=== PATIENT | female | born 1990 | race American Indian/Alaskan Native ===

== ENCOUNTER 2019-07-22 07:11 | Emergency (ER) | payer OTHER ==
--- NOTE | 2019-07-22 08:26 | Emergency Department Report ---
ED Palpitations HPI - General Chief Complaint: Arrhythmia/Palpitations Stated Complaint: HEART PALPITATIONS Time Seen by Provider: 07/22/19 07:40 Source: patient Mode of arrival: Ambulatory Limitations: No Limitations - History of Present Illness Initial Comments: This is a 28-year-old -[place] female who presents to the emergency room with palpitations for 3 days. Patient states she noticed palpitations occur with movement. She reports a history of GERD. Patient states she has been experiencing some anxiety since her mom in 2016. Patient states she had anxiety under control and not sure if this is related to. Patient states she read online that increase in fluid intake will improve palpitations. She has increase fluid intake but continues to have palpitations. She denies chest pain, nausea, vomiting, shortness of breath, fever, chills, cough, wheezing or dizziness. MD Complaint: palpitations Onset/Timin -: days(s) Context: occured during exertion Associated Symptoms: denies other symptoms - Related Data Allergies Allergy/AdvReac Type Severity Reaction Status Date / Time No Known Allergies Allergy Unverified 07/22/19 07:19 ED Review of Systems ROS: Stated complaint: HEART PALPITATIONS Other details as noted in HPI Constitutional: denies: chills, fever Respiratory: denies: cough, shortness of breath, wheezing Cardiovascular: palpitations. denies: chest pain, dyspnea on exertion, orthopnea, edema, syncope, paroxysmal nocturnal dyspnea Endocrine: no symptoms reported Gastrointestinal: denies: abdominal pain, nausea, diarrhea Skin: denies: rash, lesions Neurological: denies: headache, weakness, paresthesias Psychiatric: denies: anxiety, depression ED Past Medical Hx - Past Medical History Previous Medical History?: Yes Hx GERD: Yes - Surgical History Past Surgical History?: No - Social History Smoking Status: Never Smoker Substance Use Type: None ED Physical Exam - General Limitations: No Limitations General appearance: alert, in no apparent distress, obese - ENT ENT exam: Present: mucous membranes moist - Respiratory Respiratory exam: Present: normal lung sounds bilaterally. Absent: respiratory distress, wheezes, rales, rhonchi, stridor, chest wall tenderness - Cardiovascular Cardiovascular Exam: Present: regular rate, normal rhythm. Absent: bradycardia, tachycardia, irregular rhythm, systolic murmur, diastolic murmur, rubs, gallop - GI/Abdominal GI/Abdominal exam: Present: soft, normal bowel sounds. Absent: distended, tenderness, guarding, rebound, rigid - Neurological Exam Neurological exam: Present: alert, oriented X3, normal gait - Psychiatric Psychiatric exam: Present: normal affect, normal mood - Skin Skin exam: Present: warm, dry, intact, normal color. Absent: rash ED Course Vital Signs 07/22/19 07/22/19 07:16 07:34 Temperature 98.3 F Pulse Rate 77 Respiratory 16 18 Rate Blood Pressure 149/94 O2 Sat by Pulse 100 Oximetry ED Medical Decision Making - Lab Data Result diagrams: 07/22/19 09:22 07/22/19 09:22 Lab Results 07/22/19 07/22/19 07/22/19 Range/Units 09:22 09:22 09:22 WBC 4.3 L (4.5-11.0) K/mm3 RBC 4.61 (3.65-5.03) M/mm3 Hgb 13.9 (10.1-14.3) gm/dl Hct 40.8 (30.3-42.9) % MCV 89 (79-97) fl MCH 30 (28-32) pg MCHC 34 (30-34) % RDW 13.3 (13.2-15.2) % Plt Count 206 (140-440) K/mm3 Lymph % (Auto) 34.8 (13.4-35.0) % Weld % (Auto) 4.3 (0.0-7.3) % Eos % (Auto) 0.2 (0.0-4.3) % Baso % (Auto) 1.2 (0.0-1.8) % Lymph # 1.5 (1.2-5.4) K/mm3 Weld # 0.2 (0.0-0.8) K/mm3 Eos # 0.0 (0.0-0.4) K/mm3 Baso # 0.1 (0.0-0.1) K/mm3 Seg Neutrophils % 59.5 (40.0-70.0) % Seg Neutrophils # 2.5 (1.8-7.7) K/mm3 Sodium 143 (137-145) mmol/L Potassium 3.7 (3.6-5.0) mmol/L Chloride 105.2 (98-107) mmol/L Carbon Dioxide 26 (22-30) mmol/L Anion Gap 16 mmol/L BUN 9 (7-17) mg/dL Creatinine 0.6 L (0.7-1.2) mg/dL Estimated GFR > 60 ml/min BUN/Creatinine Ratio 15 % Glucose 110 H (65-100) mg/dL Calcium 9.2 (8.4-10.2) mg/dL TSH 0.927 (0.270-4.200) mlU/mL - Radiology Data Radiology results: report reviewed CHEST 1 VIEW 07/22/2019 9:09 AM INDICATION / CLINICAL INFORMATION: palpitations. COMPARISON: None available. FINDINGS: SUPPORT DEVICES: None. HEART / MEDIASTINUM: No significant abnormality. LUNGS / PLEURA: No significant pulmonary or pleural abnormality. No pneumothorax. ADDITIONAL FINDINGS: No significant additional findings. IMPRESSION: 1. No acute findings. - Medical Decision Making Patient was examined by me. Patient is nontoxic appearing and stable. Vitals are normal. Obtained labs, EKG, and a chest x-ray. There are signs of viral infection which possibly could cause palpitations. Patient denies shortness of breath, chest pain, cough, fever, chills, wheezing, or dizziness. EKG shows sinus rhythm and chest x-ray without acute cardiopulmonary findings. Past medical history of GERD. Instructed to take OTC pepcid or nexium for trial. Patient informed of results. Patient instructed to follow-up with the primary c are doctor or return to the emergency room with worsening symptoms. Referral to cardiology was provided. Patient discharged home in stable condition. Critical care attestation.: If time is entered above; I have spent that time in minutes in the direct care of this critically ill patient, excluding procedure time. ED Disposition Clinical Impression: Palpitations, Viral syndrome Disposition: DC-01 TO HOME OR SELFCARE Is pt being admited?: No Condition: Stable Instructions: Palpitations (ED) Additional Instructions: Follow-up with the primary care doctor or return to the emergency room with worsening symptoms. Referrals: [facility] [place] [Outside] - 3-5 Days [facility] [Outside] - 3-5 Days RODRIGO FERNANDEZ MD [Staff Physician] - 3-5 Days Forms: Work/School Release Form(ED) Time of Disposition: 10:36
[2019-07-22 09:32] LABS: Basophils # (Auto) 0.1 K/mm3 (0.0-0.1); Basophils % (Auto) 1.2 % (0.0-1.8); Eosinophils % (Auto) 0.2 % (0.0-4.3); Hematocrit 40.8 % (30.3-42.9); Hemoglobin 13.9 gm/dl (10.1-14.3); Lymphocytes # (Auto) 1.5 K/mm3 (1.2-5.4); Lymphocytes % (Auto) 34.8 % (13.4-35.0); Mean Corpuscular HGB Conc 34 % (30-34); Mean Corpuscular Volume 89 fl (79-97); Monocytes # (Auto) 0.2 K/mm3 (0.0-0.8); Monocytes % (Auto) 4.3 % (0.0-7.3); Platelet Count 206 K/mm3 (140-440); Red Blood Count 4.61 M/mm3 (3.65-5.03); Red Cell Distribution Width 13.3 % (13.2-15.2)
[2019-07-22 09:52] LABS: BUN/Creatinine Ratio 15; Blood Urea Nitrogen 9 mg/dL (7-17); Calcium 9.2 mg/dL (8.4-10.2); Hemolysis Index 24
--- NOTE | 2019-07-22 10:06 | XRay Report ---
CHEST 1 VIEW 07/22/2019 9:09 AM INDICATION / CLINICAL INFORMATION: palpitations. COMPARISON: None available. FINDINGS: SUPPORT DEVICES: None. HEART / MEDIASTINUM: No significant abnormality. LUNGS / PLEURA: No significant pulmonary or pleural abnormality. No pneumothorax. ADDITIONAL FINDINGS: No significant additional findings. IMPRESSION: 1. No acute findings. Signer Name: Scott Carrasquillo MD Signed: 07/22/2019 10:02 AM Workstation Name: [id number]
[2019-07-22 10:46] VITALS: BP 133/63
== END 2019-07-22 10:47 | disposition home or self-care (01) ==
LOC: ED 07:11
DX: B34.9 Viral infection, unspecified (principal); R00.2 Palpitations; K21.9 Gastro-esophageal reflux disease without esophagitis
CPT/HCPCS: 36415; 71046; 80048; 84443; 85025; 93005; 93010

== ENCOUNTER 2019-08-07 11:39 | Emergency (ER) | payer OTHER ==
--- NOTE | 2019-08-07 11:48 | Emergency Department Report ---
Blank Doc - Documentation Documentation: 29-year-old female that presents with URI symptoms. This initial assessment/diagnostic orders/clinical plan/treatment(s) is/are subject to change based on patient's health status, clinical progression and re- assessment by fellow clinical providers in the ED. Further treatment and workup at subsequent clinical providers discretion. Patient/guardians urged not to elope from the ED as their condition may be serious if not clinically assessed and managed. Initial orders include: 1- Patient sent to [facility] for further evaluation and treatment 2- CXR
[2019-08-07 11:52] VITALS: BP 147/81
--- NOTE | 2019-08-07 12:17 | XRay Report ---
CHEST 2 VIEWS INDICATION / CLINICAL INFORMATION: cough. COMPARISON: 07/22/2019. FINDINGS: SUPPORT DEVICES: None. HEART / MEDIASTINUM: No significant abnormality. LUNGS / PLEURA: No significant pulmonary or pleural abnormality. No pneumothorax. ADDITIONAL FINDINGS: No significant additional findings. IMPRESSION: 1. No acute findings. No significant change from the prior study. Signer Name: Joe Avendano MD Signed: 08/07/2019 12:12 PM Workstation Name: [id number]
--- NOTE | 2019-08-07 13:10 | Emergency Department Report ---
Minor Respiratory - HPI Chief Complaint: Upper Respiratory Infection Stated Complaint: SOB/COUGH/SNEEZING/BODY ACHES Time Seen by Provider: 08/07/19 11:48 Duration: 1 week Pain Location: Nose Severity: moderate Minor Respiratory: Yes Rhinorrhea, Yes Able to Tolerate Fluids, Yes Cough, Yes Sick Contacts, No Sore Throat, No Ear Pain, No Hemoptysis, No Chest Pain, No Shortness of Breath, No Fever Other History: This is a 29-year-old -Martiniquais female who presents to the emergency room with cough, body aches, rhinorrhea, and headache for one week. She has taken NyQuil for 1 day. Past medical history of GERD. Patient states she also takes omeprazole for concern of possible GERD flare with no improvement of symptoms. Denies sore throat, dysphagia, fever, chills, nausea, vomiting, or abdominal pain. ED Review of Systems ROS: Stated complaint: SOB/COUGH/SNEEZING/BODY ACHES Other details as noted in HPI Constitutional: denies: chills, fever ENT: congestion. denies: ear pain, throat pain Respiratory: cough. denies: shortness of breath, wheezing Cardiovascular: denies: chest pain, palpitations Gastrointestinal: denies: abdominal pain, nausea, diarrhea Musculoskeletal: myalgia. denies: back pain, joint swelling, arthralgia Skin: denies: rash, lesions Neurological: denies: headache, weakness, paresthesias Psychiatric: denies: anxiety, depression ED Past Medical Hx - Past Medical History Previous Medical History?: Yes Hx GERD: Yes - Surgical History Past Surgical History?: No - Social History Smoking Status: Never Smoker Substance Use Type: None - Medications Home Medications: Home Medications Medication Instructions Recorded Confirmed Last Taken Type Benzonatate [Tessalon Perles] 100 mg PO Q8HR PRN #30 capsule 08/07/19 Unknown Rx Fluticasone [Flonase] 1 spray NS QDAY #1 bottle 08/07/19 Unknown Rx guaiFENesin ER [Mucinex ER] 600 mg PO Q12H #14 tablet.er 08/07/19 Unknown Rx Minor Respiratory Exam - Exam General: Vital signs noted. No distress. Alert and acting appropriately. HEENT: Yes Pharyngeal Erythema (erythematous posterior pharynx, uvula midline), Yes Moist Mucous Membranes, Yes Rhinorrhea (turbinates congested with mucoid discharge), Yes Maxillary Tenderness, No Pharyngeal Exudates, No Conjuctival Injection, No Frontal Tenderness Ear: Neither TM Bulge, Neither TM Erythema, Neither EAC Pain, Neither EAC Discharge Neck: Yes Supple, No Adenopathy Lungs: Yes Good Air Exchange, No Wheezes, No Ronchi, No Stridor, No Cough, No Labored Respirations, No Retractions, No Use of Accessory Muscles, No Other Abnormal Lung Sounds Heart: Yes Regular, No Murmur Abdomen: Yes Normal Bowel Sounds, No Tenderness, No Peritoneal Signs Skin: No Rash, No Edema Neurologic: Alert and oriented, no deficits. Musculoskeletal: Unremarkable. ED Course Vital Signs 08/07/19 11:48 Temperature 98.3 F Pulse Rate 78 Respiratory 18 Rate Blood Pressure 147/81 O2 Sat by Pulse 99 Oximetry ED Medical Decision Making - Radiology Data Radiology results: report reviewed CHEST 2 VIEWS INDICATION / CLINICAL INFORMATION: cough. COMPARISON: 07/22/2019. FINDINGS: SUPPORT DEVICES: None. HEART / MEDIASTINUM: No significant abnormality. LUNGS / PLEURA: No significant pulmonary or pleural abnormality. No pneumothorax. ADDITIONAL FINDINGS: No significant additional findings. IMPRESSION: 1. No acute findings. No significant change from the prior study. - Medical Decision Making 29 y.o. female that presents with congestion,myalgia, rhinorrhea, and headache for 1 week. Patient examined by me and stable. No distress noted. Vitals normal. Chest xray has been obtained with no acute cardiopulmonary findings. There is moderate congestion and tenderness over maxillary sinuses. Findings are susceptible of acute maxillary sinusitis. Start Flonase, Tessalon Perles, and mucinex. Discussed ER plan with patient who agreed. Discharged home stable. Follow up with Primary Care Provider in 2-3 days. Critical care attestation.: If time is entered above; I have spent that time in minutes in the direct care of this critically ill patient, excluding procedure time. ED Disposition Clinical Impression: Cough in adult Headache Qualifiers: Headache type: tension-type Headache chronicity pattern: acute headache Intractability: not intractable Qualified Code(s): G44.209 - Tension-type headache, unspecified, not intractable Sinusitis, acute, maxillary Qualifiers: Recurrence: non-recurrent Qualified Code(s): J01.00 - Acute maxillary sinusitis, unspecified Disposition: TO HOME OR SELFCARE Is pt being admited?: No Condition: Stable Instructions: Sinusitis (ED), Acute Headache (ED) Additional Instructions: Use warm moist compresses over sinuses. Use ibuprofen or Tylenol for pain. Use nasal saline spray. Avoid taking antihistamines. Follow up with Primary Care Provider if fever, short of breath, chest pain, or symptoms do not improve as discussed. Prescriptions: Fluticasone [Flonase] 1 spray NS QDAY #1 bottle guaiFENesin ER [Mucinex ER] 600 mg PO Q12H #14 tablet.er Benzonatate [Tessalon Perles] 100 mg PO Q8HR PRN #30 capsule PRN Reason: Cough Referrals: [facility] [Outside] - 3-5 Days [facility] [Outside] - 3-5 Days [facility] [Outside] - 3-5 Days Forms: Work/School Release Form(ED) Time of Disposition: 13:11
== END 2019-08-07 13:15 | disposition home or self-care (01) ==
LOC: ED 11:39
DX: G44.209 Tension-type headache, unspecified, not intractable (principal); J01.00 Acute maxillary sinusitis, unspecified; K21.9 Gastro-esophageal reflux disease without esophagitis; Z79.899 Other long term (current) drug therapy
CPT/HCPCS: 71046; 99283

== ENCOUNTER 2019-08-31 19:26 | Emergency (ER) | payer OTHER ==
--- NOTE | 2019-08-31 19:53 | Event Note ---
ED Screening Note Date of service: 08/31/19 Time: 19:49 ED Screening Note: 29 yr f presents with heart palpatations x yesterday recent antibiotic use for uti This initial assessment/diagnostic orders/clinical plan/treatment(s) is/are subject to change based on patients health status, clinical progression and re- assessment by fellow clinical providers in the ED. Further treatment and workup at subsequent clinical providers discretion. Patient/guardian urged not to elope from the ED as their condition may be serious if not clinically assessed and managed. Initial orders include: labs,
--- NOTE | 2019-08-31 21:15 | Emergency Department Report ---
ED Palpitations HPI - General Chief Complaint: Arrhythmia/Palpitations Stated Complaint: HEART PALPITATION Time Seen by Provider: 08/31/19 21:05 Source: patient Mode of arrival: Ambulatory Limitations: No Limitations - History of Present Illness MD Complaint: rapid heart beat, "heart racing", "skipped beats", palpitations -: Last night Context: occured during rest Associated Symptoms: denies other symptoms - Related Data Previous Rx's Medication Instructions Recorded Last Taken Type Benzonatate [Tessalon Perles] 100 mg PO Q8HR PRN #30 capsule 08/07/19 Unknown Rx Fluticasone [Flonase] 1 spray NS QDAY #1 bottle 08/07/19 Unknown Rx guaiFENesin ER [Mucinex ER] 600 mg PO Q12H #14 tablet.er 08/07/19 Unknown Rx Allergies Allergy/AdvReac Type Severity Reaction Status Date / Time No Known Allergies Allergy Verified 08/31/19 19:32 ED Review of Systems ROS: Stated complaint: HEART PALPITATION Other details as noted in HPI Comment: All other systems reviewed and negative Constitutional: denies: chills, fever Respiratory: denies: orthopnea, shortness of breath, SOB with exertion, SOB at rest Cardiovascular: palpitations. denies: chest pain Gastrointestinal: denies: abdominal pain, nausea, vomiting, diarrhea, constipa tion, hematemesis, melena, hematochezia Musculoskeletal: denies: back pain ED Past Medical Hx - Past Medical History Hx GERD: Yes - Social History Smoking Status: Never Smoker Substance Use Type: None - Medications Home Medications: Home Medications Medication Instructions Recorded Confirmed Last Taken Type Benzonatate [Tessalon Perles] 100 mg PO Q8HR PRN #30 capsule 08/07/19 Unknown Rx Fluticasone [Flonase] 1 spray NS QDAY #1 bottle 08/07/19 Unknown Rx guaiFENesin ER [Mucinex ER] 600 mg PO Q12H #14 tablet.er 08/07/19 Unknown Rx ED Physical Exam - General Limitations: No Limitations General appearance: alert, in no apparent distress - Head Head exam: Present: atraumatic, normocephalic, normal inspection - Eye Eye exam: Present: normal appearance, PERRL - ENT ENT exam: Present: normal exam, normal orophraynx, mucous membranes moist - Neck Neck exam: Present: normal inspection, full ROM. Absent: tenderness, meningismus, lymphadenopathy, thyromegaly - Respiratory Respiratory exam: Present: normal lung sounds bilaterally - Cardiovascular Cardiovascular Exam: Present: regular rate, normal rhythm, normal heart sounds - GI/Abdominal GI/Abdominal exam: Present: soft, normal bowel sounds. Absent: distended, tenderness, guarding, rebound, rigid, organomegaly, mass, bruit, pulsatile mass, hernia - Extremities Exam Extremities exam: Present: normal inspection, full ROM, normal capillary refill. Absent: tenderness, pedal edema, calf tenderness - Back Exam Back exam: Present: normal inspection, full ROM. Absent: CVA tenderness (R), CVA tenderness (L), muscle spasm, paraspinal tenderness, vertebral tenderness - Neurological Exam Neurological exam: Present: alert, oriented X3, CN II-XII intact, normal gait, reflexes normal - Psychiatric Psychiatric exam: Present: normal mood - Skin Skin exam: Present: warm, intact, normal color ED Course Vital Signs 08/31/19 08/31/19 19:36 21:23 Temperature 98.5 F 98.3 F Pulse Rate 81 52 L Respiratory 14 19 Rate Blood Pressure 141/81 Blood Pressure 136/76 [right arm] O2 Sat by Pulse 100 100 Oximetry ED Medical Decision Making - Lab Data Result diagrams: 08/31/19 20:50 08/31/19 20:50 - EKG Data -: EKG Interpreted by Me EKG shows normal: sinus rhythm Rate: normal - EKG Data Interpretation: no acute changes - Medical Decision Making EKG is unremarkable. Labs reviewed and is negative including thyroid panel. Patient advised to follow-up with her primary care physician in the next 2-3 days and to return to the ER if symptoms have not improved. Critical care attestation.: If time is entered above; I have spent that time in minutes in the direct care of this critically ill patient, excluding procedure time. ED Disposition Clinical Impression: Palpitations Disposition: DC-01 TO HOME OR SELFCARE Is pt being admited?: No Condition: Stable Instructions: Palpitations (ED) Referrals: [facility] [Provider Group] - 3-5 Days PRIMARY CARE, [Primary Care Provider] - 3-5 Days
[2019-08-31 21:31] VITALS: BP 136/76
[2019-08-31 21:41] LABS: BUN/Creatinine Ratio 13; Blood Urea Nitrogen 8 mg/dL (7-17); Calcium 9.1 mg/dL (8.4-10.2); Hemolysis Index 41
[2019-08-31 21:58] LABS: Basophils % (Auto) 0.3 % (0.0-1.8); Hematocrit 39.2 % (30.3-42.9); Hemoglobin 13.2 gm/dl (10.1-14.3); Lymphocytes # (Auto) 1.1 K/mm3 (1.2-5.4); Mean Corpuscular HGB Conc 34 % (30-34); Mean Corpuscular Volume 89 fl (79-97); Monocytes # (Auto) 0.2 K/mm3 (0.0-0.8); Monocytes % (Auto) 2.9 % (0.0-7.3); Platelet Count 240 K/mm3 (140-440); Red Blood Count 4.41 M/mm3 (3.65-5.03); Red Cell Distribution Width 13.6 % (13.2-15.2)
[2019-08-31 22:15] LABS: Free T4 (Free Thyroxine) 1.11 ng/dL (0.76-1.46)
[2019-08-31 22:59] LABS: Amphetamine Screen,Urine PRESUMPTIVE NEGATIVE; Benzodiazepines Screen,Urine PRESUMPTIVE NEGATIVE; Cannabinoid Screen,Urine PRESUMPTIVE NEGATIVE; Cocaine Screen,Urine PRESUMPTIVE NEGATIVE; Methadone Screen,Urine PRESUMPTIVE NEGATIVE; Opiate Screen,Urine PRESUMPTIVE NEGATIVE
[2019-08-31 23:06] LABS: Bilirubin,Urine NEG (Negative); Blood,Urine MOD (Negative); Color,Urine Colorless (Yellow); Protein,Urine <15 mg/dL mg/dL (Negative); Urobilinogen,Urine < 2.0 mg/dL (<2.0)
[2019-08-31 23:09] LABS: WBC,Urine < 1.0 /HPF (0.0-6.0)
== END 2019-08-31 23:35 | disposition home or self-care (01) ==
LOC: ED 19:26
DX: R00.2 Palpitations (principal); K21.9 Gastro-esophageal reflux disease without esophagitis; Z79.899 Other long term (current) drug therapy
CPT/HCPCS: 36415; 80048; 80307; 81001; 83735; 84439; 84443; 84703; 85025; 93005; 93010

== ENCOUNTER 2019-09-05 16:49 | Emergency (ER) | payer OTHER ==
--- NOTE | 2019-09-05 19:07 | XRay Report ---
CHEST PA AND LATERAL VIEWS INDICATION: Chest Pain. COMPARISON: 08/07/2019 FINDINGS: Support devices: None Heart: Normal and unchanged Lungs/Pleura: No acute pulmonary or pleural findings. IMPRESSION: 1. No significant abnormality and no interval change. Signer Name: Edwardo Lepe MD Signed: 09/05/2019 7:03 PM Workstation Name: [id number]
[2019-09-05] MEDS ORDERED: ALUM-MAG HYDROXIDE-SIMETHICONE 200-200-20MG/5ML ORAL LIQD 30 ML PO ONE (21:17)
[2019-09-05] MEDS ORDERED: LIDOCAINE VISCOUS 2% 15 ML ORAL LIQD PO ONE (21:17)
[2019-09-05] MEDS ORDERED: DICYCLOMINE 20 MG TAB PO ONE (21:17)
--- NOTE | 2019-09-05 22:10 | Emergency Department Report ---
ED General Adult HPI - General Chief complaint: Chest Pain Stated complaint: CHEST TIGHTNESS/LT SIDE NUMBNESS Time Seen by Provider: 09/05/19 20:36 Source: patient Mode of arrival: Ambulatory Limitations: No Limitations - History of Present Illness Initial comments: Patient is a 29-year-old female presents to the emergency room with complaints of a panic attack that occurred today while she was picking up her prescriptions at the pharmacy. She states that she felt a tingling sensation in her left arm and felt some pressure/burning sensation in her left chest. She denies any shortness of breath, pleuritic chest pain, leg swelling, any other symptoms. She states that she has a past medical history of anxiety and has these episodes occasionally. She states that she used to be on medication and attended therapy but just moved here from [place] does not have a therapist or psychiatrist. She denies any SI or HI. she also has a hx of GERD. Severity scale (0 -10): 0 - Related Data Previous Rx's Medication Instructions Recorded Last Taken Type Benzonatate [Tessalon Perles] 100 mg PO Q8HR PRN #30 capsule 08/07/19 Unknown Rx Fluticasone [Flonase] 1 spray NS QDAY #1 bottle 08/07/19 Unknown Rx guaiFENesin ER [Mucinex ER] 600 mg PO Q12H #14 tablet.er 08/07/19 Unknown Rx Allergies Allergy/AdvReac Type Severity Reaction Status Date / Time No Known Allergies Allergy Verified 08/31/19 19:32 ED Review of Systems ROS: Stated complaint: CHEST TIGHTNESS/LT SIDE NUMBNESS Other details as noted in HPI Comment: All other systems reviewed and negative ED Past Medical Hx - Past Medical History Previous Medical History?: Yes Hx GERD: Yes - Surgical History Past Surgical History?: No - Social History Smoking Status: Never Smoker Substance Use Type: None - Medications Home Medications: Home Medications Medication Instructions Recorded Confirmed Last Taken Type Benzonatate [Tessalon Perles] 100 mg PO Q8HR PRN #30 capsule 08/07/19 Unknown Rx Fluticasone [Flonase] 1 spray NS QDAY #1 bottle 08/07/19 Unknown Rx guaiFENesin ER [Mucinex ER] 600 mg PO Q12H #14 tablet.er 08/07/19 Unknown Rx ED Physical Exam - General Limitations: No Limitations General appearance: alert, in no apparent distress - Head Head exam: Present: atraumatic, normocephalic - Eye Eye exam: Present: normal appearance - ENT ENT exam: Present: mucous membranes moist - Respiratory Respiratory exam: Present: normal lung sounds bilaterally. Absent: respiratory distress, wheezes, rales, rhonchi, stridor, chest wall tenderness, accessory muscle use, decreased breath sounds, prolonged expiratory - Cardiovascular Cardiovascular Exam: Present: regular rate, normal rhythm, normal heart sounds. Absent: systolic murmur, diastolic murmur, rubs, gallop - Neurological Exam Neurological exam: Present: alert, oriented X3 - Psychiatric Psychiatric exam: Present: normal affect, normal mood - Skin Skin exam: Present: warm, dry, intact ED Course Vital Signs 09/05/19 09/05/19 18:27 22:19 Temperature 98.2 F Pulse Rate 90 86 Respiratory 16 16 Rate Blood Pressure 163/101 142/90 [Right] O2 Sat by Pulse 98 100 Oximetry ED Medical Decision Making - Radiology Data Radiology results: report reviewed CHEST PA AND LATERAL VIEWS INDICATION: Chest Pain. COMPARISON: 08/07/2019 FINDINGS: Support devices: None Heart: Normal and unchanged Lungs/Pleura: No acute pulmonary or pleural findings. IMPRESSION: 1. No significant abnormality and no interval change. Signer Name: Edwardo Lepe MD Signed: 09/05/2019 7:03 PM Workstation Name: [id number] Transcribed By: TM Dictated By: Edwardo Lepe MD Electronically Authenticated By: Edwardo Lepe MD Signed Date/Time: 09/05/19 2803 - Medical Decision Making Patient is a 29-year-old female presents to the emergency room with complaints of a panic attack that occurred today while she was picking up her prescriptions at the pharmacy. She states that she felt a tingling sensation in her left arm and felt some pressure/burning sensation in her left chest. She denies any shortness of breath, pleuritic chest pain, leg swelling, any other symptoms. She states that she has a past medical history of anxiety and has these episodes occasionally. She states that she used to be on medication and attended therapy but just moved here from [place] does not have a therapist or psychiatrist. She denies any SI or HI. she also has a hx of GERD. Initial vitals with elevated blood pressure which improved upon repeat otherwise normal vitals. Chest x-ray with no acute process. Patient was evaluated in the emergency department last week and had stable lab work and normal EKG. patient given a GI cocktail for acid reflux which she said improved burning sensation. PERC criteria negative. pt has very low risk for cardiac event. Will have patient follow-up with a etcher aircraft and a psychiatrist due to her anxiety. advised pt Please follow up with a etcher aircraft and a psychiatrist in the next 2-3 days. Return to the [facility] room immediately for any new or worsening symptoms. - Differential Diagnosis anxiety, costochrondritis, GERD, PTX, PE, CHF Critical care attestation.: If time is entered above; I have spent that time in minutes in the direct care of this critically ill patient, excluding procedure time. ED Disposition Clinical Impression: Atypical chest pain, Anxiety GERD (gastroesophageal reflux disease) Qualifiers: Esophagitis presence: without esophagitis Qualified Code(s): K21.9 - Gastro- esophageal reflux disease without esophagitis Disposition: TO HOME OR SELFCARE Is pt being admited?: No Does the pt Need Aspirin: No Condition: Stable Instructions: Chest Pain (ED), Gastroesophageal Reflux in Children (ED), Anxiety (ED) Additional Instructions: Please follow up with a etcher aircraft and a psychiatrist in the next 2-3 days. Return to the emergency room immediately for any new or worsening symptoms. Referrals: [facility] [Outside] - 2-3 Days OLIVIA LONGORIA MD [Staff Physician] - 2-3 Days Time of Disposition: 22:11 Print Language: JAPANESE
[2019-09-05 22:21] VITALS: BP 142/90
== END 2019-09-05 22:19 | disposition home or self-care (01) ==
LOC: ED 16:49
DX: K21.9 Gastro-esophageal reflux disease without esophagitis (principal); R07.89 Other chest pain; F41.9 Anxiety disorder, unspecified; Z79.899 Other long term (current) drug therapy
CPT/HCPCS: 71046; 93005; 93010

== ENCOUNTER 2019-09-08 14:49 | Emergency (ER) | payer OTHER ==
--- NOTE | 2019-09-08 15:18 | Emergency Department Report ---
Blank Doc - Documentation Documentation: 29-year-old female that presents with dizziness and left arm feeling heavy. This initial assessment/diagnostic orders/clinical plan/treatment(s) is/are subject to change based on patient's health status, clinical progression and re- assessment by fellow clinical providers in the ED. Further treatment and workup at subsequent clinical providers discretion. Patient/guardians urged not to elope from the ED as their condition may be serious if not clinically assessed and managed. Initial orders include: 1- Patient sent to [facility] for further evaluation and treatment 2- labs 3- EKG
[2019-09-08 15:43] LABS: Basophils # (Auto) 0.1 K/mm3 (0.0-0.1); Basophils % (Auto) 1.4 % (0.0-1.8); Eosinophils % (Auto) 0.3 % (0.0-4.3); Hematocrit 39.8 % (30.3-42.9); Hemoglobin 13.5 gm/dl (10.1-14.3); Lymphocytes # (Auto) 2.1 K/mm3 (1.2-5.4); Lymphocytes % (Auto) 34.2 % (13.4-35.0); Mean Corpuscular HGB Conc 34 % (30-34); Mean Corpuscular Volume 89 fl (79-97); Monocytes # (Auto) 0.3 K/mm3 (0.0-0.8); Monocytes % (Auto) 5.1 % (0.0-7.3); Platelet Count 236 K/mm3 (140-440); Red Blood Count 4.48 M/mm3 (3.65-5.03); Red Cell Distribution Width 13.3 % (13.2-15.2)
[2019-09-08 16:04] LABS: Alanine Aminotransferase 9 units/L (7-56); Albumin 4.4 g/dL (3.9-5); BUN/Creatinine Ratio 9; Blood Urea Nitrogen 6 mg/dL (7-17); Calcium 9.5 mg/dL (8.4-10.2); Hemolysis Index 8
[2019-09-08] MEDS ORDERED: MECLIZINE 25 MG TAB PO ONE (20:08)
[2019-09-08] MEDS ORDERED: POTASSIUM CHLORIDE ER 20 MEQ TAB PO ONE (20:08)
[2019-09-08 20:28] LABS: Bilirubin,Urine NEG (Negative); Blood,Urine SM (Negative); Color,Urine Straw (Yellow); Protein,Urine <15 mg/dL mg/dL (Negative); Urobilinogen,Urine < 2.0 mg/dL (<2.0); WBC,Urine < 1.0 /HPF (0.0-6.0)
--- NOTE | 2019-09-08 20:48 | Emergency Department Report ---
ED General Adult HPI - General Chief complaint: Dizziness Stated complaint: DIZZY/MIDDLE FACE PRESSURE Time Seen by Provider: 09/08/19 15:17 Source: patient Mode of arrival: Ambulatory Limitations: No Limitations - History of Present Illness Initial comments: Patient is a 29-year-old female presents emergency room with complete symptom dizziness that began 3 days ago. She states it's worse with laying flat or when she first stands up. She states she also has a frontal headache described as a pressure. Patient states also for one month she has had her "whole body feel like the muscles are pulling." She denies any chest pain, nausea, vomiting, s hortness of breath, leg swelling, vision changes, lateral numbness or weakness. Patient states that she has an appointment with a hoisting machine operator tomorrow. That she went to her primary care physician office earlier this week. She states that her only medical history is vitamin D deficiency and hypercholesterolemia. States that she was only placed on cholesterol medicine approximately 3 days ago and states that she had the muscle pulling sensation for a month - Related Data Previous Rx's Medication Instructions Recorded Last Taken Type Benzonatate [Tessalon Perles] 100 mg PO Q8HR PRN #30 capsule 08/07/19 Unknown Rx Fluticasone [Flonase] 1 spray NS QDAY #1 bottle 08/07/19 Unknown Rx guaiFENesin ER [Mucinex ER] 600 mg PO Q12H #14 tablet.er 08/07/19 Unknown Rx Cyclobenzaprine [Flexeril] 10 mg PO QHS PRN #10 tablet 09/08/19 Unknown Rx Meclizine [Antivert] 25 mg PO TID PRN #10 tablet 09/08/19 Unknown Rx Allergies Allergy/AdvReac Type Severity Reaction Status Date / Time No Known Allergies Allergy Verified 08/31/19 19:32 ED Review of Systems ROS: Stated complaint: DIZZY/MIDDLE FACE PRESSURE Other details as noted in HPI Comment: All other systems reviewed and negative ED Past Medical Hx - Past Medical History Previous Medical History?: Yes Hx GERD: Yes - Surgical History Past Surgical History?: No - Social History Smoking Status: Never Smoker Substance Use Type: None - Medications Home Medications: Home Medications Medication Instructions Recorded Confirmed Last Taken Type Benzonatate [Tessalon Perles] 100 mg PO Q8HR PRN #30 capsule 08/07/19 Unknown Rx Fluticasone [Flonase] 1 spray NS QDAY #1 bottle 08/07/19 Unknown Rx guaiFENesin ER [Mucinex ER] 600 mg PO Q12H #14 tablet.er 08/07/19 Unknown Rx Cyclobenzaprine [Flexeril] 10 mg PO QHS PRN #10 tablet 09/08/19 Unknown Rx Meclizine [Antivert] 25 mg PO TID PRN #10 tablet 09/08/19 Unknown Rx ED Physical Exam - General Limitations: No Limitations General appearance: alert, in no apparent distress - Head Head exam: Present: atraumatic, normocephalic - Eye Eye exam: Present: normal appearance, PERRL, EOMI. Absent: scleral icterus, con junctival injection, nystagmus, periorbital swelling, periorbital tenderness - ENT ENT exam: Present: normal orophraynx, mucous membranes moist, TM's normal bila terally, normal external ear exam, other (normal turbinates, no purulence in the nares, no sinus TTP) - Respiratory Respiratory exam: Present: normal lung sounds bilaterally. Absent: respiratory distress, wheezes, rales, rhonchi, stridor, chest wall tenderness, accessory muscle use, decreased breath sounds, prolonged expiratory - Cardiovascular Cardiovascular Exam: Present: regular rate, normal rhythm, normal heart sounds. Absent: systolic murmur, diastolic murmur, rubs, gallop - Neurological Exam Neurological exam: Present: alert, oriented X3, CN II-XII intact, normal gait, other (normal finger to nose, normal heel to reilly, 5/5 strength in the BUE/BLE, sensation intact throughout, no focal neuro deficit). Absent: motor sensory deficit - Psychiatric Psychiatric exam: Present: normal affect, normal mood - Skin Skin exam: Present: warm, dry, intact ED Course Vital Signs 09/08/19 09/08/19 15:06 21:03 Temperature 98.5 F Pulse Rate 87 77 Respiratory 16 17 Rate Blood Pressure 152/73 143/99 [Right] O2 Sat by Pulse 100 99 Oximetry ED Medical Decision Making - Lab Data Result diagrams: 09/08/19 15:27 09/08/19 15:27 Lab Results 09/08/19 09/08/19 09/08/19 Range/Units 15:27 15:27 20:07 WBC 6.3 (4.5-11.0) K/mm3 RBC 4.48 (3.65-5.03) M/mm3 Hgb 13.5 (10.1-14.3) gm/dl Hct 39.8 (30.3-42.9) % MCV 89 (79-97) fl MCH 30 (28-32) pg MCHC 34 (30-34) % RDW 13.3 (13.2-15.2) % Plt Count 236 (140-440) K/mm3 Lymph % (Auto) 34.2 (13.4-35.0) % [place] % (Auto) 5.1 (0.0-7.3) % Eos % (Auto) 0.3 (0.0-4.3) % Baso % (Auto) 1.4 (0.0-1.8) % Lymph # 2.1 (1.2-5.4) K/mm3 [place] # 0.3 (0.0-0.8) K/mm3 Eos # 0.0 (0.0-0.4) K/mm3 Baso # 0.1 (0.0-0.1) K/mm3 Seg Neutrophils % 59.0 (40.0-70.0) % Seg Neutrophils # 3.7 (1.8-7.7) K/mm3 Sodium 140 (137-145) mmol/L Potassium 3.4 L (3.6-5.0) mmol/L Chloride 102.2 (98-107) mmol/L Carbon Dioxide 24 (22-30) mmol/L Anion Gap 17 mmol/L BUN 6 L (7-17) mg/dL Creatinine 0.7 (0.7-1.2) mg/dL Estimated GFR > 60 ml/min BUN/Creatinine Ratio 9 % Glucose 101 H (65-100) mg/dL Calcium 9.5 (8.4-10.2) mg/dL Total Bilirubin 0.90 (0.1-1.2) mg/dL AST 13 (5-40) units/L ALT 9 (7-56) units/L Alkaline Phosphatase 66 (35-129) units/L Total Protein 7.3 (6.3-8.2) g/dL Albumin 4.4 (3.9-5) g/dL Albumin/Globulin Ratio 1.5 % Urine Color Straw (Yellow) Urine Turbidity Clear (Clear) Urine pH 6.0 (5.0-7.0) Ur Specific [place] 1.003 (1.003-1.030) Urine Protein <15 mg/dl (Negative) mg/dL Urine Glucose (UA) Neg (Negative) mg/dL Urine Ketones Tr (Negative) mg/dL Urine Blood Sm (Negative) Urine Nitrite Neg (Negative) Urine Bilirubin Neg (Negative) Urine Urobilinogen < 2.0 (<2.0) mg/dL Ur Leukocyte Esterase Neg (Negative) Urine WBC (Auto) < 1.0 (0.0-6.0) /HPF Urine RBC (Auto) 3.0 (0.0-6.0) /HPF U Epithel Cells (Auto) 8.0 (0-13.0) /HPF - EKG Data EKG shows normal: axis, intervals, QRS complexes Rate: normal - EKG Data 09/08/19 20:53 sinus arrhythmia LAE non specific T wave changes V1,V2, V3 compared to previous EKGs only change is sinus arrhythmia otherwise unchanged - Medical Decision Making Patient is a 29-year-old female presents emergency room with complete symptom dizziness that began 3 days ago. She states it's worse with laying flat or when she first stands up. She states she also has a frontal headache described as a pressure. Patient states also for one month she has had her "whole body feel like the muscles are pulling." She denies any chest pain, nausea, vomiting, shortness of breath, leg swelling, vision changes, lateral numbness or weakness. Patient states that she has an appointment with a hoisting machine operator tomorrow. That she went to her primary care physician office earlier this week. She states that her only medical history is vitamin D deficiency and hypercholesterolemia. States that she was only placed on cholesterol medicine approximately 3 days ago and states that she had the muscle pulling sensation for a month. Vitals are stable. No abnormality on physical examination as recorded in chart. Mild hypokalemia otherwise normal. Patient given K-Dur. UA is within normal limits. EKG with sinus arrhythmia, left atrial enlargement, nonspecific T-wave changes, appears similar to previous except for the sinus arrhythmia. pt given meclizine while in the emergency department and had no further episodes of dizziness and was able to walk in the emergency department without sprinting dizziness. She given prescription for meclizine and given prescription for Flexeril for her muscle spasms. her kidney function is normal, no protein in her urine, very unlikely rhabdomyolysis. advised pt Please take medication as prescribed. Do not drive or operate machinery while taking muscle relaxer. Please follow-up with your primary care doctor and your hoisting machine operator. Increase your water intake over the next several days. Return to the emergency room for any new or worsening symptoms. Please discuss with your primary care doctor about the medications your taking. - Differential Diagnosis electrolyte disturbance, arrhythmia, vertigo, hypotension, UTI Critical care attestation.: If time is entered above; I have spent that time in minutes in the direct care of this critically ill patient, excluding procedure time. ED Disposition Clinical Impression: Dizziness, Hypokalemia Disposition: DC-01 TO HOME OR SELFCARE Is pt being admited?: No Does the pt Need Aspirin: No Condition: Stable Instructions: Hypokalemia (ED), Dizziness (ED) Additional Instructions: Please take medication as prescribed. Do not drive or operate machinery while taking muscle relaxer. Please follow-up with your primary care doctor and your hoisting machine operator. Increase your water intake over the next several days. Return to the emergency room for any new or worsening symptoms. Please discuss with your primary care doctor about the medications your taking. Prescriptions: Cyclobenzaprine [Flexeril] 10 mg PO QHS PRN #10 tablet PRN Reason: Muscle Spasm Meclizine [Antivert] 25 mg PO TID PRN #10 tablet PRN Reason: Vertigo Referrals: VALERI GRAVES MD [Primary Care Provider] - 2-3 Days your, hoisting machine operator [Other] - 2-3 Days Time of Disposition: 20:58 Print Language: [place]
[2019-09-08 21:04] VITALS: BP 143/99
== END 2019-09-08 21:03 | disposition home or self-care (01) ==
LOC: ED 14:49
DX: R42 Dizziness and giddiness (principal); R51 Headache; E87.6 Hypokalemia; K21.9 Gastro-esophageal reflux disease without esophagitis
CPT/HCPCS: 36415; 80053; 81001; 85025; 93005; 93010

== ENCOUNTER 2019-09-24 14:18 | Emergency (ER) | payer OTHER ==
[2019-09-24 14:59] VITALS: BP 125/92
--- NOTE | 2019-09-24 15:01 | Event Note ---
ED Screening Note Date of service: 09/24/19 Time: 14:58 ED Screening Note: Pt complains of substernal chest pain x 10 am states hx of GERD and pain felt similar to her GERD pain, however omeprazole is not helping follows with a GI specialist This initial assessment/diagnostic orders/clinical plan/treatment(s) is/are subject to change based on patients health status, clinical progression and re- assessment by fellow clinical providers in the ED. Further treatment and workup at subsequent clinical providers discretion. Patient/guardian urged not to elope from the ED as their condition may be serious if not clinically assessed and managed. Initial orders include: labs CXR
[2019-09-24 15:53] LABS: Basophils % (Auto) 0.8 % (0.0-1.8); Eosinophils % (Auto) 0.1 % (0.0-4.3); Hematocrit 42.2 % (30.3-42.9); Hemoglobin 14.1 gm/dl (10.1-14.3); Lymphocytes # (Auto) 1.6 K/mm3 (1.2-5.4); Lymphocytes % (Auto) 34.6 % (13.4-35.0); Mean Corpuscular HGB Conc 33 % (30-34); Mean Corpuscular Volume 90 fl (79-97); Monocytes # (Auto) 0.3 K/mm3 (0.0-0.8); Monocytes % (Auto) 5.8 % (0.0-7.3); Platelet Count 209 K/mm3 (140-440); Red Blood Count 4.71 M/mm3 (3.65-5.03); Red Cell Distribution Width 13.4 % (13.2-15.2)
--- NOTE | 2019-09-24 15:56 | XRay Report ---
CHEST 2 VIEWS INDICATION / CLINICAL INFORMATION: chest pain. COMPARISON: Chest radiograph 09/05/2019 FINDINGS: Normal heart size. Clear lungs. No acute abnormality or significant change from 09/05/2019. Signer Name: Macario Crane MD Signed: 09/24/2019 3:52 PM Workstation Name: [id number]
[2019-09-24 16:14] LABS: Alanine Aminotransferase 11 units/L (7-56); Albumin 4.4 g/dL (3.9-5); BUN/Creatinine Ratio 7; Blood Urea Nitrogen 5 mg/dL (7-17); Calcium 9.8 mg/dL (8.4-10.2); Hemolysis Index 16
[2019-09-24] MEDS ORDERED: DICYCLOMINE 20 MG TAB PO ONE (18:40)
[2019-09-24] MEDS ORDERED: LIDOCAINE VISCOUS 2% 15 ML ORAL LIQD PO ONE (18:40)
[2019-09-24] MEDS ORDERED: ALUM-MAG HYDROXIDE-SIMETHICONE 200-200-20MG/5ML ORAL LIQD 30 ML PO ONE (18:40)
--- NOTE | 2019-09-24 18:42 | Emergency Department Report ---
ED Chest Pain HPI - General Chief Complaint: Chest Pain Stated Complaint: CHEST PAIN Time Seen by Provider: 09/24/19 14:57 Source: patient Mode of arrival: Ambulatory Limitations: No Limitations - History of Present Illness Initial Comments: Patient is a 29-year-old female presents emergency room with complaints of chest pain that began this morning. She states that it feels like a burning and pressure sensation. She states that she took her omeprazole and an [id number] antacid without complete relief. She denies any vomiting, shortness of breath, leg swelling, diaphoresis. She denies any recent travel, recent surgery, hormone use. Patient has been evaluated in the emergency department on multiple occasions for her chest pain. Patient states that she recently saw a sheet metal duct installer helper and wore a Holter monitor and had an echo performed which were both normal. Patient states she has also seen a GI doctor and had an EGD performed and she is awaiting results. - Related Data Previous Rx's Medication Instructions Recorded Last Taken Type Benzonatate [Tessalon Perles] 100 mg PO Q8HR PRN #30 capsule 08/07/19 Unknown Rx Fluticasone [Flonase] 1 spray NS QDAY #1 bottle 08/07/19 Unknown Rx guaiFENesin ER [Mucinex ER] 600 mg PO Q12H #14 tablet.er 08/07/19 Unknown Rx Cyclobenzaprine [Flexeril] 10 mg PO QHS PRN #10 tablet 09/08/19 Unknown Rx Meclizine [Antivert] 25 mg PO TID PRN #10 tablet 09/08/19 Unknown Rx Pantoprazole [Protonix TAB] 40 mg PO QDAY #30 tablet 09/24/19 Unknown Rx Allergies Allergy/AdvReac Type Severity Reaction Status Date / Time No Known Allergies Allergy Verified 08/31/19 19:32 Heart Score - HEART Score History: Slightly suspicious EKG: Normal Age: < 45 Risk factors: 1-2 risk factors Troponin: < normal limit HEART Score: 1 ED Review of Systems ROS: Stated complaint: CHEST PAIN Other details as noted in HPI Comment: All other systems reviewed and negative ED Past Medical Hx - Past Medical History Previous Medical History?: Yes Hx GERD: Yes Additional medical history: High cholesterol - Surgical History Past Surgical History?: No - Social History Smoking Status: Never Smoker Substance Use Type: None - Medications Home Medications: Home Medications Medication Instructions Recorded Confirmed Last Taken Type Benzonatate [Tessalon Perles] 100 mg PO Q8HR PRN #30 capsule 08/07/19 Unknown Rx Fluticasone [Flonase] 1 spray NS QDAY #1 bottle 08/07/19 Unknown Rx guaiFENesin ER [Mucinex ER] 600 mg PO Q12H #14 tablet.er 08/07/19 Unknown Rx Cyclobenzaprine [Flexeril] 10 mg PO QHS PRN #10 tablet 09/08/19 Unknown Rx Meclizine [Antivert] 25 mg PO TID PRN #10 tablet 09/08/19 Unknown Rx Pantoprazole [Protonix TAB] 40 mg PO QDAY #30 tablet 09/24/19 Unknown Rx ED Physical Exam - General Limitations: No Limitations General appearance: alert, in no apparent distress - Head Head exam: Present: atraumatic, normocephalic - Eye Eye exam: Present: normal appearance - ENT ENT exam: Present: mucous membranes moist - Respiratory Respiratory exam: Present: normal lung sounds bilaterally. Absent: respiratory distress, wheezes, rales, rhonchi, stridor, chest wall tenderness, accessory muscle use, decreased breath sounds, prolonged expiratory - Cardiovascular Cardiovascular Exam: Present: regular rate, normal rhythm, normal heart sounds. Absent: systolic murmur, diastolic murmur, rubs, gallop - Extremities Exam Extremities exam: Absent: pedal edema - Neurological Exam Neurological exam: Present: alert, oriented X3 - Psychiatric Psychiatric exam: Present: normal affect, normal mood - Skin Skin exam: Present: warm, dry, intact ED Course Vital Signs 09/24/19 09/24/19 14:57 19:52 Temperature 98.3 F Pulse Rate 95 H 60 Respiratory 16 Rate Blood Pressure 125/92 O2 Sat by Pulse 100 100 Oximetry GRAHAM score - Graham Score Age > 65: (0) No Aspirin use within the Past 7 Days: (0) No 3 or more CAD Risk Factors: (0) No 2 or more Angina events in past 24 hrs: (0) No Known CAD with more than 50% Stenosis: (0) No Elevated Cardiac Markers: (0) No ST Deviation Greater than 0.5mm: (0) No GRAHAM Score: 0 ED Medical Decision Making - Lab Data Result diagrams: 09/24/19 15:44 09/24/19 15:44 - EKG Data EKG shows normal: sinus rhythm, axis, intervals, QRS complexes Rate: normal - EKG Data 09/24/19 19:27 non specific T wave inversion in V1, V2, V3 no STEMI - Radiology Data Radiology results: report reviewed CHEST 2 VIEWS INDICATION / CLINICAL INFORMATION: chest pain. COMPARISON: Chest radiograph 09/05/2019 FINDINGS: Normal heart size. Clear lungs. No acute abnormality or significant change from 09/05/2019. Signer Name: Macario Crane MD Signed: 09/24/2019 3:52 PM Workstation Name: [id number] Transcribed By: AMOS Dictated By: Macario Crane MD Electronically Authenticated By: Macario Crane MD Signed Date/Time: 09/24/191551 DD/ 50 TD/TT: - Medical Decision Making Patient is a 29-year-old female presents emergency room with complaints of chest pain that began this morning. She states that it feels like a burning and press ure sensation. She states that she took her omeprazole and an lkhb-rob-yroxwhj antacid without complete relief. She denies any vomiting, shortness of breath, leg swelling, diaphoresis. She denies any recent travel, recent surgery, hormone use. Patient has been evaluated in the emergency department on multiple occasions for her chest pain. Patient states that she recently saw a sheet metal duct installer helper and wore a Holter monitor and had an echo performed which were both normal. Patient states she has also seen a GI doctor and had an EGD performed and she is awaiting results. heart score is 1, graham score is 0. PERC criteria negative for PE. labs are normal. troponin is negative x2. CXR: Normal heart size. Clear lungs. No acute abnormality or significant change from 09/05/2019. pt given GI cocktail with some improvement in symptoms. it appears pt may have anxiety vs somatic symptom disorder will refer pt to mental health. pt given prescription for protonix. advised pt to please take medication as prescribed. Please stop taking omeprazole and begin taking pantoprazole. Increase your water intake. Please follow the diet for acid reflux. Follow up with her primary care doctor in the next 2-3 days. please follow up with mental health. Return to the emergency room for any new or worsening symptoms. Critical care attestation.: If time is entered above; I have spent that time in minutes in the direct care of this critically ill patient, excluding procedure time. ED Disposition Clinical Impression: Atypical chest pain GERD (gastroesophageal reflux disease) Qualifiers: Esophagitis presence: without esophagitis Qualified Code(s): K21.9 - Gastro- esophageal reflux disease without esophagitis Disposition: TO HOME OR SELFCARE Is pt being admited?: No Does the pt Need Aspirin: No Condition: Stable Instructions: Chest Pain (ED), Diet for Ulcers and Gastritis (ED), Gastroesophageal Reflux Disease (ED) Additional Instructions: please take medication as prescribed. Please stop taking omeprazole and begin taking pantoprazole. Increase your water intake. Please follow the diet for acid reflux. Follow up with her primary care doctor in the next 2-3 days. please follow up with mental health. Return to the emergency room for any new or worsening symptoms. Prescriptions: Pantoprazole [Protonix TAB] 40 mg PO QDAY #30 tablet Referrals: PRIMARY CARE, [Primary Care Provider] - [facility] Time of Disposition: 19:25 Print Language: AUSTRIAN
== END 2019-09-24 19:36 | disposition home or self-care (01) ==
LOC: ED 14:18
DX: K21.9 Gastro-esophageal reflux disease without esophagitis (principal); R07.89 Other chest pain; E78.00 Pure hypercholesterolemia, unspecified; Z79.899 Other long term (current) drug therapy
CPT/HCPCS: 36415; 71046; 80053; 84484; 85025; 93005; 93010

== ENCOUNTER 2020-01-14 02:36 | Emergency (ER) | payer OTHER ==
[2020-01-14] MEDS ORDERED: ONDANSETRON 4 MG/2 ML INJ IV ONE (03:27)
[2020-01-14] MEDS ORDERED: KETOROLAC 30 MG/1 ML INJ IV ONE (03:27)
[2020-01-14] MEDS ORDERED: HYDROmorphone 1 MG/1 ML INJ IV ONE (03:27)
[2020-01-14] MEDS ORDERED: ETOMIDATE 20 MG/10 ML INJ IV ONE (03:44)
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
--- NOTE | 2020-01-14 04:03 | XRay Report ---
RIGHT SHOULDER 3 VIEWS 0317 INDICATION: dislocated COMPARISON: None available. FINDINGS: An anterior and inferior dislocation of the humerus is seen relative to the glenoid. No def inite fracture is identified. Signer Name: Elias Machado MD Signed: 01/14/2020 3:58 AM Workstation Name: [id number]
--- NOTE | 2020-01-14 04:33 | XRay Report ---
RIGHT SHOULDER 1 VIEW 0359 INDICATION: Post reduction COMPARISON: 0317 FINDINGS: On this single view the previous dislocation appears to have been reduced though there is s till mild inferior subluxation. No fracture is identified. Signer Name: Elias Machado MD Signed: 01/14/2020 4:28 AM Workstation Name: [id number]
[2020-01-14 06:47] VITALS: BP 104/63
== END 2020-01-14 06:45 | disposition home or self-care (01) ==
LOC: ED 02:36
DX: S43.084A Other dislocation of right shoulder joint, initial encounter (principal); E78.00 Pure hypercholesterolemia, unspecified; K21.9 Gastro-esophageal reflux disease without esophagitis; Z79.1 Long term (current) use of non-steroidal anti-inflammatories (NSAID); Z79.899 Other long term (current) drug therapy; X58.XXXA Exposure to other specified factors, initial encounter; Y93.89 Activity, other specified; Y92.89 Other specified places as the place of occurrence of the external cause; Y99.8 Other external cause status
CPT/HCPCS: 23650; 73020; 73030; 96374; 96375; 99284; J1170; J1885; J2405

== ENCOUNTER 2020-05-23 23:44 | Emergency (ER) | payer OTHER ==
--- NOTE | 2020-05-24 00:28 | XRay Report ---
CHEST 1 VIEW INDICATION: Chest Pain. COMPARISON: 09/24/2019. FINDINGS: Support devices: None. Heart: Within normal limits. Lungs/Pleura: No acute air space or interstitial disease. Additional findings: None. IMPRESSION: No acute abnormality. Signer Name: Bird Jasso MD Signed: 05/24/2020 12:23 AM Workstation Name: [id number]
[2020-05-24] MEDS ORDERED: IBUPROFEN 600 MG TAB PO ONE (02:13)
[2020-05-24] MEDS ORDERED: BUTALB/ACETAMINOPHEN/CAFFEINE TAB PO ONE (02:13)
[2020-05-24] MEDS ORDERED: AMOXICILLIN/K CLAV 875/125MG TAB PO ONE (02:13)
[2020-05-24] MEDS ORDERED: ONDANSETRON 4 MG ODT TAB PO ONE (02:13)
--- NOTE | 2020-05-24 04:29 | Emergency Department Report ---
- General Chief Complaint: Chest Pain Stated Complaint: CHEST PAIN/HEADACHE/DIZZINESS [id number] Source: patient Mode of arrival: Ambulatory Limitations: No Limitations - History of Present Illness Initial Comments: Patient is a 29-year-old -Italian female with past medical history of GERD who presents to the ED with complaint of acute onset persistent frontal sinus pressure and headache, nasal and sinus congestion, sore throat, mild dry cough and pleuritic chest pain for the last 1 week, worse in the last 2 days. Patient states that she has been taking nqhs-ybr-offxatk medications with no relief. Patient also states that she lost her voice about 2 days ago due to persistent sore throat. Patient denies fever, chills, nausea, vomiting, shortness of breath, abdominal pain, dizziness, syncope, neck pain, change in vision, dysuria, urinary frequency and urgency or hearing loss. MD Complaint: cough, sore throat, rhinorrhea, nasal congestion, sinus pain, other (pleuritic chest pain) -: Sudden, week(s) (1) Severity: severe Severity scale (0 -10): 8 Quality: burning, sharp Consistency: constant Improves With: OTC cold medicine, cough suppressant Worsens With: nothing Associated Symptoms: denies other symptoms, headache, rhinorrhea, nasal congestion, sore throat, cough, chest pain. denies: fever, chills, myalgias, diaphoresis, stiff neck, shortness of breath, abdominal pain, nausea, vomiting, diarrhea, dysuria, rash, confusion, weight loss, epistaxis, hoarseness, ear pain Treatments Prior to Arrival: "cold medicine" - Related Data Previous Rx's Medication Instructions Recorded Last Taken Type Benzonatate [Tessalon Perles] 100 mg PO Q8HR PRN #30 capsule 08/07/19 Unknown Rx Fluticasone [Flonase] 1 spray NS QDAY #1 bottle 08/07/19 Unknown Rx guaiFENesin ER [Mucinex ER] 600 mg PO Q12H #14 tablet.er 08/07/19 Unknown Rx Cyclobenzaprine [Flexeril] 10 mg PO QHS PRN #10 tablet 09/08/19 Unknown Rx Meclizine [Antivert] 25 mg PO TID PRN #10 tablet 09/08/19 Unknown Rx Pantoprazole [Protonix TAB] 40 mg PO QDAY #30 tablet 09/24/19 Unknown Rx Ibuprofen [Motrin] 800 mg PO Q8HR PRN #30 tablet 01/14/20 Unknown Rx traMADoL [Ultram 50 MG tab] 50 mg PO Q4HR PRN #14 tablet 01/14/20 Unknown Rx Cyclobenzaprine [Flexeril] 10 mg PO TID PRN #10 tablet 05/01/20 Unknown Rx HYDROcodone/APAP 5-325 [[place] 1 each PO Q6HR PRN #14 tablet 05/01/20 Unknown Rx 5/325] Ibuprofen [Motrin 800 MG tab] 800 mg PO Q8HR PRN #20 tablet 05/01/20 Unknown Rx Azithromycin [Zithromax Z-DAVID] 250 mg PO DAILY #6 tablet 05/24/20 Unknown Rx Cetirizine HCl [Zyrtec 10mg tab] 10 mg PO DAILY #30 tablet 05/24/20 Unknown Rx Ibuprofen [Motrin] 800 mg PO Q8HR PRN #24 tablet 05/24/20 Unknown Rx methylPREDNISolone [Medrol 4MG 4 mg PO DAILY #21 tab.ds.pk 05/24/20 Unknown Rx DOSEPAK (21 tabs)] Allergies Allergy/AdvReac Type Severity Reaction Status Date / Time No Known Allergies Allergy Verified 08/31/19 19:32 ED Review of Systems ROS: Stated complaint: CHEST PAIN/HEADACHE/DIZZINESS X3WKS Other details as noted in HPI Constitutional: denies: chills, fever Eyes: denies: eye pain, eye discharge, vision change ENT: throat pain, congestion, other (Frontal sinus pressure and pain). denies: ear pain Respiratory: cough. denies: shortness of breath, wheezing Cardiovascular: chest pain (Pleuritic chest pain). denies: palpitations Endocrine: no symptoms reported Gastrointestinal: denies: abdominal pain, nausea, diarrhea Genitourinary: denies: urgency, dysuria, discharge Musculoskeletal: denies: back pain, joint swelling, arthralgia Skin: denies: rash, lesions Neurological: headache. denies: weakness, paresthesias Psychiatric: denies: anxiety, depression Hematological/Lymphatic: denies: easy bleeding, easy bruising ED Past Medical Hx - Past Medical History Previous Medical History?: Yes Hx GERD: Yes Additional medical history: High cholesterol - Social History Smoking Status: Never Smoker Substance Use Type: None - Medications Home Medications: Home Medications Medication Instructions Recorded Confirmed Last Taken Type Benzonatate [Tessalon Perles] 100 mg PO Q8HR PRN #30 capsule 08/07/19 Unknown Rx Fluticasone [Flonase] 1 spray NS QDAY #1 bottle 08/07/19 Unknown Rx guaiFENesin ER [Mucinex ER] 600 mg PO Q12H #14 tablet.er 08/07/19 Unknown Rx Cyclobenzaprine [Flexeril] 10 mg PO QHS PRN #10 tablet 09/08/19 Unknown Rx Meclizine [Antivert] 25 mg PO TID PRN #10 tablet 09/08/19 Unknown Rx Pantoprazole [Protonix TAB] 40 mg PO QDAY #30 tablet 09/24/19 Unknown Rx Ibuprofen [Motrin] 800 mg PO Q8HR PRN #30 tablet 01/14/20 Unknown Rx traMADoL [Ultram 50 MG tab] 50 mg PO Q4HR PRN #14 tablet 01/14/20 Unknown Rx Cyclobenzaprine [Flexeril] 10 mg PO TID PRN #10 tablet 05/01/20 Unknown Rx HYDROcodone/APAP 5-325 [[place] 1 each PO Q6HR PRN #14 tablet 05/01/20 Unknown Rx 5/325] Ibuprofen [Motrin 800 MG tab] 800 mg PO Q8HR PRN #20 tablet 05/01/20 Unknown Rx Azithromycin [Zithromax Z-DAVID] 250 mg PO DAILY #6 tablet 05/24/20 Unknown Rx Cetirizine HCl [Zyrtec 10mg tab] 10 mg PO DAILY #30 tablet 05/24/20 Unknown Rx Ibuprofen [Motrin] 800 mg PO Q8HR PRN #24 tablet 05/24/20 Unknown Rx methylPREDNISolone [Medrol 4MG 4 mg PO DAILY #21 tab.ds.pk 05/24/20 Unknown Rx DOSEPAK (21 tabs)] ED Physical Exam - General Limitations: No Limitations General appearance: alert, in no apparent distress - Head Head exam: Present: atraumatic, normocephalic, normal inspection - Eye Eye exam: Present: normal appearance, PERRL, EOMI Pupils: Present: normal accommodation - ENT ENT exam: Present: mucous membranes moist, TM's normal bilaterally, normal external ear exam, other (Palpable frontal sinus tenderness; grossly congested nasal passages; erythematous oropharynx) - Neck Neck exam: Present: normal inspection, full ROM. Absent: tenderness, lymphadenopathy - Respiratory Respiratory exam: Present: normal lung sounds bilaterally. Absent: respiratory distress, wheezes, rhonchi, chest wall tenderness, accessory muscle use, decreased breath sounds, prolonged expiratory - Cardiovascular Cardiovascular Exam: Present: regular rate, normal rhythm, normal heart sounds. Absent: systolic murmur, diastolic murmur, rubs, gallop - GI/Abdominal GI/Abdominal exam: Present: soft, normal bowel sounds. Absent: tenderness, guarding, hyperactive bowel sounds, hypoactive bowel sounds - Extremities Exam Extremities exam: Present: normal inspection, full ROM, normal capillary refill - Back Exam Back exam: Present: normal inspection, full ROM. Absent: CVA tenderness (L), muscle spasm, vertebral tenderness - Neurological Exam Neurological exam: Present: alert, oriented X3, CN II-XII intact, normal gait, reflexes normal - Psychiatric Psychiatric exam: Present: normal affect, normal mood - Skin Skin exam: Present: warm, dry, intact, normal color. Absent: rash ED Medical Decision Making - Radiology Data Radiology results: report reviewed, image reviewed Findings [facility] [address] [place] [address] XRay Report Signed Patient: CRICKET DURHAM MR #: [id number] : 1990 Acct:[id number] Age/Sex: 29 / F ADM Date: 05/23/20 Loc: ED Attending Dr: Ordering Physician: ALEX BLANCO MD Date of Service: 05/24/20 Procedure(s): XR chest 1V ap Accession Number(s): [id number] cc: ALEX BLANCO MD Fluoro Time In Minutes: CHEST 1 VIEW INDICATION: Chest Pain. COMPARISON: 09/24/2019. FINDINGS: Support devices: None. Heart: Within normal limits. Lungs/Pleura: No acute air space or interstitial disease. Additional findings: None. IMPRESSION: No acute abnormality. Signer Name: Bird Jasso MD Signed: 05/24/2020 12:23 AM Workstation Name: [id number] Transcribed By: ES Dictated By: Bird Jasso MD Electronically Authenticated By: Bird Jasso MD Signed Date/Time: 05/24/20 0023 DD/ TD/TT: - Medical Decision Making This is a 29-year-old -Italian female with past medical history of GERD who presents to the ED with complaint of acute onset persistent frontal sinus pressure and headache, nasal and sinus congestion, sore throat, mild dry cough and pleuritic chest pain for the last 1 week, worse in the last 2 days. Patient states that she has been taking rrwm-byi-yblbvih medications with no relief. Patient also states that she lost her voice about 2 days ago due to persistent sore throat. In the ED, patient is alert and oriented x3 and is not in distress. Chest x-ray shows no acute cardiopulmonary abnormalities or pneumonitis. Patient was treated in the ED with oral steroid and pain medications. On reevaluation, patient felt better and was discharged home on medications and advised follow-up with her primary care physician in 5 to 7 days for reevaluation or return to the ED immediately if symptoms get worse. - Differential Diagnosis sinusitis; URI; Pharyngitis; Pneumonia; Bronchitis Critical care attestation.: If time is entered above; I have spent that time in minutes in the direct care of this critically ill patient, excluding procedure time. ED Disposition Clinical Impression: Acute upper respiratory infection Acute frontal sinusitis Qualifiers: Recurrence: non-recurrent Qualified Code(s): J01.10 - Acute frontal sinusitis, unspecified Acute pharyngitis Qualifiers: Pharyngitis/tonsillitis etiology: unspecified etiology Qualified Code(s): J02.9 - Acute pharyngitis, unspecified Disposition: - TO HOME OR SELFCARE Is pt being admited?: No Does the pt Need Aspirin: No Condition: Stable Instructions: Pharyngitis (ED), Acute Bacterial Rhinosinusitis (ED), Upper Respiratory Infection (ED) Additional Instructions: Take medication with food, drink plenty of fluids and follow-up with your primary care physician in 5 to 7 days for reevaluation. Return to the ED immediately if symptoms get worse. Prescriptions: methylPREDNISolone [Medrol 4MG DOSEPAK (21 tabs)] 4 mg PO DAILY #21 tab.ds.pk Ibuprofen [Motrin] 800 mg PO Q8HR PRN #24 tablet PRN Reason: Pain , Severe (7-10) Azithromycin [Zithromax Z-DAVID] 250 mg PO DAILY #6 tablet Cetirizine HCl [Zyrtec 10mg tab] 10 mg PO DAILY #30 tablet Referrals: [facility] [Provider Group] - 3-5 Days Forms: Work/School Release Form(ED) Time of Disposition: 04:27 Print Language: GEORGIAN
[2020-05-24 04:32] VITALS: BP 142/86
== END 2020-05-24 05:00 | disposition home or self-care (01) ==
LOC: ED 23:44
DX: J06.9 Acute upper respiratory infection, unspecified (principal); J01.10 Acute frontal sinusitis, unspecified; J02.9 Acute pharyngitis, unspecified
CPT/HCPCS: 71045; 93005; 99283; Q0162

== ENCOUNTER 2020-06-25 07:10 | Outpatient (CLI) | payer OTHER ==
--- NOTE | 2020-06-25 09:15 | Magnetic Resonance Report ---
MRI right shoulder without contrast INDICATION: Anterior dislocation 3 times, generalized shoulder pain. COMPARISON: Right shoulder radiograph from 05/01/2020 FINDINGS: There is a well-defined Hill-Sachs fracture along the superolateral humeral head which is most likely subacute/chronic given relative lack of surrounding bone marrow edema. No acute osseous a bnormality or significant DJD identified. Rotator cuff tendons are intact with no discrete tear identified. Likewise the biceps tendon is intac t. There is irregularity of the anterior inferior glenoid without acute-appearing tear (i.e. lack of flu id bright signal), suggesting subacute/chronic Bankart lesion associated with a Hill-Sachs fracture. IMPRESSION: Findings of anterior inferior humeral head dislocation with associated labral injury. Gi taqueria relative lack of bone marrow edema and fluid bright signal in the labrum, these findings are like ly subacute/chronic. Signer Name: Duglas Ellsworth MD Signed: 06/25/2020 9:11 AM Workstation Name: [id number]
== END 2020-06-25 07:11 | disposition home or self-care (01) ==
LOC: MRI 07:10
PROVIDERS: ATTEND Orthopaedic Surgery
DX: S43.014A Anterior dislocation of right humerus, initial encounter (principal); X58.XXXA Exposure to other specified factors, initial encounter; Y93.89 Activity, other specified; Y92.89 Other specified places as the place of occurrence of the external cause; Y99.8 Other external cause status

== ENCOUNTER 2020-07-04 03:40 | Emergency (ER) | payer OTHER ==
[2020-07-04 04:24] VITALS: BP 134/93
== END 2020-07-04 04:30 | disposition left against medical advice (07) ==
LOC: ED 03:40
DX: R07.89 Other chest pain (principal); R42 Dizziness and giddiness; R00.2 Palpitations; Z53.21 Procedure and treatment not carried out due to patient leaving prior to being seen by health care provider
CPT/HCPCS: 93005

== ENCOUNTER 2021-06-20 07:10 | Emergency (ER) | payer OTHER ==
[2021-06-20] MEDS ORDERED: fentaNYL 100 MCG/2 ML INJ IV ONE (07:30)
--- NOTE | 2021-06-20 07:41 | Emergency Department Report ---
Upper Extremity - HPI Stated Complaint: dislocated rt shoulder Time Seen by Provider: 06/20/21 07:27 Other History: Patient presents secondary to right shoulder pain. She was trying to put her son in a car seat to take him to daycare so she did go to work. She felt her right shoulder pop out of joint. She has dislocated her right shoulder before and states that it is "easy to do." The last time she did this, she had to be sedated for reduction. She is complaining of pain in the right shoulder. The pain does not radiate or migrate. It is worse with any kind of movement. She describes the pain is severe. She denies any numbness or tingling in the digits on the right hand. She has not taken anything for pain prior to arrival. She is right-hand dominant. The pain is constant. ED Review of Systems ROS: Stated complaint: dislocated rt shoulder Other details as noted in HPI Comment: All other systems reviewed and negative Constitutional: denies: fever Eyes: denies: vision change ENT: denies: throat pain Respiratory: denies: cough Cardiovascular: denies: chest pain Endocrine: denies: unexplained weight loss Gastrointestinal: denies: abdominal pain Genitourinary: denies: dysuria Musculoskeletal: denies: back pain Skin: denies: rash Neurological: denies: headache, numbness Hematological/Lymphatic: denies: easy bruising ED Past Medical Hx - Past Medical History Previous Medical History?: Yes Hx GERD: Yes Additional medical history: High cholesterol - Surgical History Past Surgical History?: No - Family History Family history: no significant - Social History Smoking Status: Never Smoker Substance Use Type: None - Medications Home Medications: Home Medications Medication Instructions Recorded Confirmed Last Taken Type Fluticasone [Flonase] 1 spray NS QDAY #1 bottle 08/07/19 Unknown Rx Cyclobenzaprine [Flexeril] 10 mg PO QHS PRN #10 tablet 09/08/19 Unknown Rx Meclizine [Antivert] 25 mg PO TID PRN #10 tablet 09/08/19 Unknown Rx Pantoprazole [Protonix TAB] 40 mg PO QDAY #30 tablet 09/24/19 Unknown Rx traMADoL [Ultram 50 MG tab] 50 mg PO Q4HR PRN #14 tablet 01/14/20 Unknown Rx Cyclobenzaprine [Flexeril] 10 mg PO TID PRN #10 tablet 05/01/20 Unknown Rx HYDROcodone/APAP 5-325 [[place] 1 each PO Q6HR PRN #14 tablet 05/01/20 Unknown Rx 5/325] Cetirizine HCl [Zyrtec 10mg tab] 10 mg PO DAILY #30 tablet 05/24/20 Unknown Rx methylPREDNISolone [Medrol 4MG 4 mg PO DAILY #21 tab.ds.pk 05/24/20 Unknown Rx DOSEPAK (21 tabs)] Ibuprofen [Motrin 800 MG tab] 800 mg PO Q8HR PRN #30 tablet 06/20/21 Unknown Rx Upper Extremity Exam - Exam General: Vital signs noted. No distress. Alert and acting appropriately. Head and Torso: No HEENT Abnormality (Normocephalic, atraumatic. PERRL. EOMI. Oropharynx clear.), No Neck Tenderness (Trachea midline), No Chest/Lungs Abnormality (Heart is regular rate and rhythm. Lungs are clear bilaterally.), No Abdominal Tenderness (Soft and nontender.), No Back Tenderness (No CVA tenderness.) Shoulder Exam: Yes Shoulder Tenderness (Diffuse tenderness with palpation of the right shoulder. There is a suggestion of a step-off consistent with fracture.), No Normal Range of Motion in Shoulder (Limited range of motion due to pain.) Arm Exam: No Arm Deformity Elbow: No Elbow Tenderness, No Normal Range of Motion in Elbow, No Elbow Deformity Forearm: No Forearm Tenderness, No Forearm Deformity, No Pain with Pronation, No Pain with Supination Wrist: No Wrist Tenderness, No Normal ROM in Wrist Hand: No Hand Tenderness, No Hand Deformity CMS Exam: Yes Normal Distal Pulses (2+ radial pulses bilaterally), Yes Normal Capillary Refill (Normal capillary refill), Yes Normal Distal Sensation ED Course Vital Signs 06/20/21 07:27 Temperature 98.4 F Pulse Rate 64 Respiratory 16 Rate Blood Pressure 145/83 [Left] O2 Sat by Pulse 95 Oximetry - Reevaluation(s) Reevaluation #1: 06/20/21 07:30 IV medications were ordered. X-rays were ordered. Reevaluation #2: 06/20/21 08:04 X-rays were reviewed. Propofol was ordered. Reevaluation #3: 06/20/21 08:44 Shoulder was reduced. X-rays are pending. - Moderate Sedation Indications: fracture/dislocation redu Presedation Evaluation: Awake alert and in no distress. Patient meets criteria for sedation ASA Class: I Mallampati Airway Score: 2 Time of Last PO Intake: 06:00 Preparation: storage architect applied, pulse oximeter, capnometry used, supplemental O2 applied, suction/airway equipment at bedside, IV secured IV Propofol Dose (mgs): 80 (This was divided into 50 mg and 30 mg dosing) Complications: none Patient Tolerated Procedure: well, no complications Additional Comments: Intraservice sedation time was 17 minutes - Orthopedic Joint Reduction Joint #1 Consent Obtained: verbal consent Time Out Performed: Yes Side: right Joint Reduction Location: shoulder Analgesia: moderate sedation Shoulder Technique Used (if applicable): traction/counter-traction Post-Reduction Neuro Exam: intact Post-Reduction Vascular Exam: intact Post Reduction X-Ray Obtained: Yes Post Reduction X-Ray Results: reduced Splint Applied: Yes (Shoulder immobilizer and sling) Patient Tolerated Procedure: well Additional Comments: Intraservice sedation time was 17 minutes. ED Medical Decision Making - Medical Decision Making Patient present with a shoulder dislocation. There was a Hill-Sachs deformity noted. The shoulder was reduced. Patient was subsequently discharged. There was no evidence of neurologic compromise or vascular injury. Patient had no o ther joint injury or instability. I believe the Hill-Sachs fracture was old. Critical Care Time: No Critical care attestation.: If time is entered above; I have spent that time in minutes in the direct care of this critically ill patient, excluding procedure time. ED Disposition Clinical Impression: Recurrent dislocation, right shoulder Disposition: 01 HOME / SELF CARE / HOMELESS Is pt being admited?: No Condition: Stable Instructions: Shoulder Dislocation, Recurrent Shoulder Laxity and Instability Additional Instructions: Wear the shoulder immobilizer. Ice and elevate. Return for problems. Follow- up with your orthopedic surgeon for recheck and further management. Prescriptions: Ibuprofen [Motrin 800 MG tab] 800 mg PO Q8HR PRN #30 tablet PRN Reason: Pain , Severe (7-10) Referrals: PRIMARY CARE, [Referring] - 3-5 Days ARTURO DELEON MD [Staff Physician] - 3-5 Days REBECCA BORDEN MD [Staff Physician] - 3-5 Days Forms: Work/School Release Form(ED)
[2021-06-20] MEDS ORDERED: propofoL 200 MG/20 ML VIAL IV ONE (08:03)
--- NOTE | 2021-06-20 08:18 | XRay Report ---
XR shoulder 2+V RT INDICATION: dislocation. COMPARISON: None available. FINDINGS: There is an anterior glenohumeral joint dislocation in the right shoulder. Signer Name: Joe Avendano MD Signed: 06/20/2021 8:14 AM Workstation Name: [id number]
--- NOTE | 2021-06-20 09:21 | XRay Report ---
XR shoulder 2+V RT INDICATION / CLINICAL INFORMATION: Post reduction COMPARISON: Radiograph from earlier today. FINDINGS/IMPRESSION: The humeral head has been relocated with respect to the glenoid. Remote Hill-Sachs deformity again se en. No acute fracture is identified. Signer Name: Zander Patel MD Signed: 06/20/2021 9:17 AM Workstation Name: [id number]
[2021-06-20 09:51] VITALS: BP 156/82
== END 2021-06-20 09:58 | disposition home or self-care (01) ==
LOC: ED 07:10
DX: M24.411 Recurrent dislocation, right shoulder (principal); K21.9 Gastro-esophageal reflux disease without esophagitis; E78.00 Pure hypercholesterolemia, unspecified
CPT/HCPCS: 23650; 73030; 96374; 99283; J2704; J3010

== ENCOUNTER 2021-08-06 13:28 | Emergency (ER) | payer OTHER ==
[2021-08-06 13:41] VITALS: BP 137/90
== END 2021-08-06 14:45 | disposition left against medical advice (07) ==
LOC: ED 13:28
DX: R42 Dizziness and giddiness (principal); R11.0 Nausea; M79.602 Pain in left arm; Z53.21 Procedure and treatment not carried out due to patient leaving prior to being seen by health care provider

== ENCOUNTER 2021-12-17 08:04 | Emergency (ER) | payer OTHER ==
[2021-12-17 09:50] LABS: HCG Qualitative,Urine Negative (Negative)
[2021-12-17 09:52] LABS: Bilirubin,Urine NEG (Negative); Blood,Urine NEG (Negative); Color,Urine Yellow (Yellow); Protein,Urine <15 mg/dL mg/dL (Negative); Urobilinogen,Urine < 2.0 mg/dL (<2.0)
[2021-12-17 09:54] LABS: Hematocrit 39.5 % (30.3-42.9); Hemoglobin 13.2 gm/dl (10.1-14.3); Mean Corpuscular HGB Conc 33 % (30-34); Mean Corpuscular Volume 90 fl (79-97); Platelet Count 222 K/mm3 (140-440); Red Cell Distribution Width 12.9 % (13.2-15.2)
--- NOTE | 2021-12-17 09:56 | Emergency Department Report ---
ED General Adult HPI - General Chief complaint: Medical Clearance Stated complaint: Anxiety PUI?: No Time Seen by Provider: 12/17/21 08:34 Source: patient Mode of arrival: Ambulatory Limitations: No Limitations - History of Present Illness Initial comments: Patient is a 31-year-old female that comes to the emergency room complaining of numbness and tingling. She has a history of anxiety and reports being under a lot of stress with her kids at home and with her significant other. She denies any chest pain or shortness of breath. She does not want to take medicines for anxiety because she can get addicted to them. 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 She is well-appe aring and ambulatory, nontoxic [id number] on arrival to ER. -: Gradual, days(s) Improves with: none Worsens with: other Associated Symptoms: denies other symptoms - Related Data Allergies Allergy/AdvReac Type Severity Reaction Status Date / Time No Known Allergies Allergy Verified 08/06/21 13:41 ED Review of Systems ROS: Stated complaint: LT SIDE NUMBNESS Other details as noted in HPI Comment: All other systems reviewed and negative ED Past Medical Hx - Past Medical History Previous Medical History?: Yes Hx GERD: Yes Hx Psychiatric Treatment: Yes (anxiety) Additional medical history: High cholesterol. inc HR "when at doctor" - Surgical History Past Surgical History?: No - Family History Family history: no significant - Social History Smoking Status: Never Smoker Substance Use Type: None ED Physical Exam - General Limitations: No Limitations General appearance: alert, in no apparent distress - Head Head exam: Present: atraumatic, normocephalic - Eye Eye exam: Present: normal appearance - ENT ENT exam: Present: mucous membranes moist - Neck Neck exam: Present: normal inspection - Respiratory Respiratory exam: Present: normal lung sounds bilaterally. Absent: respiratory distress - Cardiovascular Cardiovascular Exam: Present: regular rate, normal rhythm. Absent: systolic murmur, diastolic murmur, rubs, gallop - GI/Abdominal GI/Abdominal exam: Present: soft, normal bowel sounds - Extremities Exam Extremities exam: Present: normal inspection - Back Exam Back exam: Present: normal inspection - Neurological Exam Neurological exam: Present: alert, oriented X3 - Psychiatric Psychiatric exam: Present: normal affect, normal mood - Skin Skin exam: Present: warm, dry, intact, normal color. Absent: rash ED Course Vital Signs 12/17/21 12/17/21 08:09 10:26 Temperature 98.0 F Pulse Rate 112 H 66 Respiratory 16 16 Rate Blood Pressure 144/85 Blood Pressure 138/82 [Right] O2 Sat by Pulse 99 99 Oximetry ED Medical Decision Making - Lab Data Result diagrams: 12/17/21 09:31 12/17/21 09:31 - Medical Decision Making Lab Results 12/17/21 12/17/21 12/17/21 Range/Units 09:31 09:31 Unknown WBC 5.0 (4.5-11.0) K/mm3 RBC 4.40 (3.65-5.03) M/mm3 Hgb 13.2 (10.1-14.3) gm/dl Hct 39.5 (30.3-42.9) % MCV 90 (79-97) fl MCH 30 (28-32) pg MCHC 33 (30-34) % RDW 12.9 L (13.2-15.2) % Plt Count 222 (140-440) K/mm3 Sodium 141 (137-145) mmol/L Potassium 4.1 (3.6-5.0) mmol/L Chloride 103.1 (98-107) mmol/L Carbon Dioxide 27 (22-30) mmol/L Anion Gap 15 mmol/L BUN 9 (7-17) mg/dL Creatinine 0.6 (0.6-1.2) mg/dL Estimated GFR > 60 ml/min BUN/Creatinine Ratio 15 % Glucose 109 H (65-100) mg/dL Calcium 9.9 (8.4-10.2) mg/dL Urine Color Yellow (Yellow) Urine Turbidity Clear (Clear) Urine pH 6.0 (5.0-7.0) Ur Specific Hood 1.005 (1.003-1.030) Urine Protein <15 mg/dl (Negative) mg/dL Urine Glucose (UA) Neg (Negative) mg/dL Urine Ketones Neg (Negative) mg/dL Urine Blood Neg (Negative) Urine Nitrite Neg (Negative) Ur Reducing Substances Not Reportable Urine Bilirubin Neg (Negative) Urine Ictotest Not Reportable Urine Urobilinogen < 2.0 (<2.0) mg/dL Ur Leukocyte Esterase Neg (Negative) Urine WBC (Auto) 1.0 (0.0-6.0) /HPF Urine RBC (Auto) 4.0 (0.0-6.0) /HPF U Epithel Cells (Auto) 2.0 (0-13.0) /HPF Urine HCG, Qual Negative (Negative) Vital Signs 12/17/21 12/17/21 08:09 10:26 Temperature 98.0 F Pulse Rate 112 H 66 Respiratory 16 16 Rate Blood Pressure 144/85 Blood Pressure 138/82 [Right] O2 Sat by Pulse 99 99 Oximetry Labs noted. UA noted. U negative. Patient has spent most of her time in the ER playing on her cell phone. She is in no acute distress. Patient was reassured of her lab findings. Have encouraged her to follow-up with primary care and get established with someone so that they can manage her anxiety on ongoing basis. She verbalizes understanding. Patient being discharged home with discharge plan of care including diet, meds, activity and follow-up. We have discussed ways to control her anxiety and minimize her stress. - Differential Diagnosis anxiety Critical care attestation.: If time is entered above; I have spent that time in minutes in the direct care of this critically ill patient, excluding procedure time. ED Disposition Clinical Impression: Anxiety Disposition: 01 HOME / SELF CARE / HOMELESS Is pt being admited?: No Does the pt Need Aspirin: No Condition: Stable Instructions: Managing Anxiety, Adult Additional Instructions: stay well hydrated daily exercise reduce stress follow up with pcp Referrals: [facility] [Other] - 3-5 Days Forms: Work/School Release Form(ED) Time of Disposition: 10:09
[2021-12-17 10:08] LABS: Blood Urea Nitrogen 9 mg/dL (7-17); Calcium 9.9 mg/dL (8.4-10.2); Hemolysis Index 13
[2021-12-17 10:12] LABS: BUN/Creatinine Ratio 15
[2021-12-17 10:27] VITALS: BP 138/82
== END 2021-12-17 10:27 | disposition home or self-care (01) ==
LOC: ED 08:04
DX: F41.9 Anxiety disorder, unspecified (principal); K21.9 Gastro-esophageal reflux disease without esophagitis
CPT/HCPCS: 36415; 80048; 81001; 81025; 85027; 99283

== ENCOUNTER → 2022-04-02 | Emergency (ER) | payer OTHER ==
[2022-04-02 16:21] VITALS: BP 144/90
== END | disposition left against medical advice (07) ==
LOC: ED 14:22
DX: R42 Dizziness and giddiness (principal); Z53.21 Procedure and treatment not carried out due to patient leaving prior to being seen by health care provider

== ENCOUNTER 2022-05-25 16:23 | Emergency (ER) | payer OTHER ==
--- NOTE | 2022-05-25 22:01 | Event Note ---
Date: 05/25/22 The patient was evaluated in the emergency department for symptoms described in the history of present illness. He/she was evaluated in the context of the global COVID-19 pandemic, which necessitated consideration that the patient might be at risk for infection with the virus that causes COVID-19. Institutional protocols and algorithms that pertain to the evaluation of patients at risk for COVID-19 are in a state of rapid change based on information released by regulatory bodies including the CDC and federal and state organizations. These policies and algorithms were followed during the patient's care in the emergency department. Please note that these policies, procedures and recommendations changed on a rapid basis. Medical screening examination note: 31-year-old female who states that she is not , who has received 1 Pfizer COVID-19 vaccination, presenting to the department today with a complaint of nonspecific chest pressure, bilateral facial paresthesias, bilateral hand paresthesias, and bilateral foot and ankle paresthesias. She is moving 4 extremities. There is no facial droop. The tongue is midline. EOMI. 5 out of 5 strength in 4 extremities. Patient manipulating cell phone without difficulty. She is clinically sober with a GCS of 15. She states that she is not , and denies bladder or bowel retention incontinence or saddle anesthesia. Obtain EKG, appropriate laboratory studies, detailed history and physical to be performed by oncoming provider. Vital Signs 05/25/22 16:39 Temperature 98.7 F Pulse Rate 113 H Respiratory 20 Rate Blood Pressure 164/83 [Right] O2 Sat by Pulse 100 Oximetry
[2022-05-25 22:56] LABS: Basophils % (Auto) 0.4 % (0.0-1.8); Eosinophils % (Auto) 0.1 % (0.0-4.3); Hematocrit 41.5 % (30.3-42.9); Hemoglobin 14.1 gm/dl (10.1-14.3); Lymphocytes # (Auto) 2.3 K/mm3 (1.2-5.4); Lymphocytes % (Auto) 37.1 % (13.4-35.0); Mean Corpuscular HGB Conc 34 % (30-34); Mean Corpuscular Volume 89 fl (79-97); Monocytes # (Auto) 0.3 K/mm3 (0.0-0.8); Monocytes % (Auto) 5.6 % (0.0-7.3); Platelet Count 275 K/mm3 (140-440); Red Blood Count 4.67 M/mm3 (3.65-5.03)
[2022-05-25 23:05] LABS: INR 0.98 (0.87-1.13)
[2022-05-25 23:06] LABS: Partial Thromboplastin Time 26.7 Sec. (24.2-36.6); Thrombin Time 15.7 Sec. (15.1-19.6)
[2022-05-25 23:22] LABS: Creatine Kinase MB 1.3 ng/mL (0.0-4.0)
[2022-05-25 23:23] LABS: Alanine Aminotransferase 9 units/L (7-56); Albumin 4.6 g/dL (3.9-5); BUN/Creatinine Ratio 10; Blood Urea Nitrogen 7 mg/dL (7-17); Calcium 9.7 mg/dL (8.4-10.2); Hemolysis Index 8
[2022-05-25 23:25] LABS: Free T4 (Free Thyroxine) 1.11 ng/dL (0.76-1.46)
[2022-05-25 23:29] LABS: HCG,Quantitative < 2 mIU/mL (0-4)
--- NOTE | 2022-05-25 23:35 | Emergency Department Report ---
ED Neuro Deficit HPI - General Chief Complaint: Neuro Symptoms/Deficit Stated Complaint: TINGLING IN FACE,LEFT SIDE CHEST PAIN, LIGHTHEADED Time Seen by Provider: 05/25/22 22:14 Source: patient, old records reviewed Mode of arrival: Ambulatory Limitations: No Limitations - History of Present Illness Initial Comments: 31-year-old female the past medical history of anxiety, GERD, and elevated cholesterol presents to the hospital complaining of intermittent tingling sensation/paresthesias since yesterday. Patient complains of intermittent paresthesias to her whole face, her left arm, left flank, left leg, right leg, and bilateral hands. She began to feel the tingling and burning sensation radiating to her chest as well patient has a history of anxiety with similar symptoms which typically also include palpitations and shortness of breath which she currently denies. Patient has also been seen here in the past for similar symptoms secondary to anxiety. Patient does endorse a lot of stress. She is a single mother of 3 children and does not have a lot of family support. 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 Patient had a unpleasant conversation with one of h kids grandmothers which she believes exacerbated her symptoms. - Related Data Home Medications: Previous Rx's Medication Instructions Recorded Last Taken Type Famotidine/Ca Carb/Mag Hydrox 1 each PO BID PRN #20 tab 05/25/22 Unknown Rx [Pepcid Complete Tablet Chew] hydrOXYzine PAMOATE [Vistaril] 50 mg PO Q6HR PRN #20 capsule 05/25/22 Unknown Rx Allergies/Adverse Reactions: Allergies Allergy/AdvReac Type Severity Reaction Status Date / Time No Known Allergies Allergy Verified 08/06/21 13:41 ED Review of Systems ROS: Stated complaint: TINGLING IN FACE,LEFT SIDE CHEST PAIN, LIGHTHEADED Other details as noted in HPI Comment: All other systems reviewed and negative ED Past Medical Hx - Past Medical History Hx GERD: Yes Hx Psychiatric Treatment: Yes (anxiety) Additional medical history: High cholesterol. inc HR "when at doctor". Recurrent right shoulder dislocation - Social History Smoking Status: Never Smoker Substance Use Type: None - Medications Home Medications: Home Medications Medication Instructions Recorded Confirmed Last Taken Type Famotidine/Ca Carb/Mag Hydrox 1 each PO BID PRN #20 tab 05/25/22 Unknown Rx [Pepcid Complete Tablet Chew] hydrOXYzine PAMOATE [Vistaril] 50 mg PO Q6HR PRN #20 capsule 05/25/22 Unknown Rx ED Neuro Physical Exam - General Limitations: No Limitations Suspected Stroke: No - NIHSS Assessment Interval: Baseline 1a. Level of Consciousness: alert/keenly responsive 1b. LOC Questions: answers both correctly 1c. LOC Commands: performs tasks correctly 2. Best Gaze: normal 3. Visual: no visual loss 4. Facial Palsy: normal symmetrical movement 5b. Motor Arm Right: no drift 5a. Motor Arm Left: no drift 6a. Motor Leg Left: no drift 6b. Motor Leg Right: no drift 7. Limb Ataxia: absent 8. Sensory: normal 9. Best Language: no aphasia 10. Dysarthria: normal 11. Extinction/Inattention: no abnormality Total Score: 0 Stroke Severity: No Stroke Symptoms - Other Other exam information: General: No acute distress Head: Atraumatic Eyes: normal appearance ENT: Moist mucous membranes Neck: Normal appearance, no midline tenderness Chest: Clear to auscultation bilaterally CV: Regular rate and rhythm Abdomen: Soft, normal bowel sounds, nontender, nondistended, no rebound or guarding Back: Normal inspection Extremity: Normal inspection, full range of motion Neuro: Alert O x 3, no facial asymmetry, speech clear, no gross motor sensory deficit, see NIH stroke Psych: Appropriate behavior Skin: No rash ED Course Vital Signs 05/25/22 05/25/22 05/25/22 16:39 22:27 22:31 Temperature 98.7 F Pulse Rate 113 H 77 68 Respiratory 20 15 18 Rate Blood Pressure 113/71 Blood Pressure 164/83 [Right] O2 Sat by Pulse 100 100 100 Oximetry 05/25/22 05/25/22 05/25/22 22:45 23:01 23:20 Temperature Pulse Rate 88 67 75 Respiratory 13 19 18 Rate Blood Pressure 136/87 136/87 Blood Pressure [Right] O2 Sat by Pulse 100 100 97 Oximetry - Lab Data Result diagrams: 05/25/22 22:21 05/25/22 22:21 Lab Results 05/25/22 05/25/22 05/25/22 Range/Units 22:21 22:21 22:21 WBC 6.1 (4.5-11.0) K/mm3 RBC 4.67 (3.65-5.03) M/mm3 Hgb 14.1 (10.1-14.3) gm/dl Hct 41.5 (30.3-42.9) % MCV 89 (79-97) fl MCH 30 (28-32) pg MCHC 34 (30-34) % RDW 13.0 L (13.2-15.2) % Plt Count 275 (140-440) K/mm3 Lymph % (Auto) 37.1 H (13.4-35.0) % Cloud % (Auto) 5.6 (0.0-7.3) % Eos % (Auto) 0.1 (0.0-4.3) % Baso % (Auto) 0.4 (0.0-1.8) % Lymph # (Auto) 2.3 (1.2-5.4) K/mm3 Cloud # (Auto) 0.3 (0.0-0.8) K/mm3 Eos # (Auto) 0.0 (0.0-0.4) K/mm3 Baso # (Auto) 0.0 (0.0-0.1) K/mm3 Seg Neutrophils % 56.8 (40.0-70.0) % Seg Neutrophils # 3.5 (1.8-7.7) K/mm3 PT 14.1 (12.2-14.9) Sec. INR 0.98 (0.87-1.13) APTT 26.7 (24.2-36.6) Sec. Thrombin Time 15.7 (15.1-19.6) Sec. Sodium 141 (137-145) mmol/L Potassium 4.2 (3.6-5.0) mmol/L Chloride 102.7 (98-107) mmol/L Carbon Dioxide 26 (22-30) mmol/L Anion Gap 17 mmol/L BUN 7 (7-17) mg/dL Creatinine 0.7 (0.6-1.2) mg/dL Estimated GFR > 60 ml/min BUN/Creatinine Ratio 10 % Glucose 90 (65-100) mg/dL Calcium 9.7 (8.4-10.2) mg/dL Magnesium 1.90 (1.7-2.3) mg/dL Total Bilirubin 0.50 (0.1-1.2) mg/dL AST 13 (5-40) units/L ALT 9 (7-56) units/L Alkaline Phosphatase 85 (35-129) units/L Total Creatine Kinase 126 (30-135) units/L CK-MB (CK-2) 1.3 (0.0-4.0) ng/mL CK-MB (CK-2) Rel Index 1.0 (0-4) Troponin T < 0.010 (0.00-0.029) ng/mL Total Protein 7.2 (6.3-8.2) g/dL Albumin 4.6 (3.9-5) g/dL Albumin/Globulin Ratio 1.8 % TSH (0.270-4.200) mlU/mL Free T4 (0.76-1.46) ng/dL HCG, Quant (0-4) mIU/mL Plasma/Serum Alcohol (0-0.07) % 05/25/22 05/25/22 05/25/22 Range/Units 22:21 22:21 22:21 WBC (4.5-11.0) K/mm3 RBC (3.65-5.03) M/mm3 Hgb (10.1-14.3) gm/dl Hct (30.3-42.9) % MCV (79-97) fl MCH (28-32) pg MCHC (30-34) % RDW (13.2-15.2) % Plt Count (140-440) K/mm3 Lymph % (Auto) (13.4-35.0) % Cloud % (Auto) (0.0-7.3) % Eos % (Auto) (0.0-4.3) % Baso % (Auto) (0.0-1.8) % Lymph # (Auto) (1.2-5.4) K/mm3 Cloud # (Auto) (0.0-0.8) K/mm3 Eos # (Auto) (0.0-0.4) K/mm3 Baso # (Auto) (0.0-0.1) K/mm3 Seg Neutrophils % (40.0-70.0) % Seg Neutrophils # (1.8-7.7) K/mm3 PT (12.2-14.9) Sec. INR (0.87-1.13) APTT (24.2-36.6) Sec. Thrombin Time (15.1-19.6) Sec. Sodium (137-145) mmol/L Potassium (3.6-5.0) mmol/L Chloride (98-107) mmol/L Carbon Dioxide (22-30) mmol/L Anion Gap mmol/L BUN (7-17) mg/dL Creatinine (0.6-1.2) mg/dL Estimated GFR ml/min BUN/Creatinine Ratio % Glucose (65-100) mg/dL Calcium (8.4-10.2) mg/dL Magnesium (1.7-2.3) mg/dL Total Bilirubin (0.1-1.2) mg/dL AST (5-40) units/L ALT (7-56) units/L Alkaline Phosphatase (35-129) units/L Total Creatine Kinase (30-135) units/L CK-MB (CK-2) (0.0-4.0) ng/mL CK-MB (CK-2) Rel Index (0-4) Troponin T (0.00-0.029) ng/mL Total Protein (6.3-8.2) g/dL Albumin (3.9-5) g/dL Albumin/Globulin Ratio % TSH 0.667 0.669 (0.270-4.200) mlU/mL Free T4 1.11 (0.76-1.46) ng/dL HCG, Quant < 2 (0-4) mIU/mL Plasma/Serum Alcohol < 0.01 (0-0.07) % - EKG Data -: EKG Interpreted by Ca EKG shows normal: sinus rhythm, ST-T waves (Nonspecific T wave abnormality in the anterior leads, no STEMI) Rate: normal - Medical Decision Making 31-year-old female presents to the hospital symptoms and signs of anxiety. Neurologic exam is nonfocal. Labs unremarkable do not reveal electrolyte abnormality or thyroid disorder. EKG is normal sinus rate 76. Patient did initially present with tachycardia which improved spontaneously without intervention. Patient admits to increased stress to her life but has not seen her therapist in several years. She was encouraged to reconnect with her therapist, follow-up with a psychiatrist, and will be provided Vistaril as needed anxiety symptoms. Patient also endorses a burning sensation in her chest with a history of GERD as per medical record. GERD may be exacerbated by anxiety and stress as well. H2 morelia will be prescribed Critical Care Time: No Critical care attestation.: If time is entered above; I have spent that time in minutes in the direct care of this critically ill patient, excluding procedure time. ED Disposition Clinical Impression: Anxiety, Paresthesia, GERD (gastroesophageal reflux disease) Disposition: HOME / SELF CARE / HOMELESS Is pt being admited?: No Does the pt Need Aspirin: No Condition: Stable Instructions: Managing Anxiety, Adult, Gastroesophageal Reflux Disease, Adult, [id number] Additional Instructions: Take the medication as prescribed. Follow-up with your doctor or doctor/clinic provided. Reconnect with your therapist for management of your anxiety symptoms. Return if symptoms worsen as indicated by your discharge instructions. Professional and Agency Contacts To help [facility] (13/04) [place] Crisis Line: Suicide Prevention Line: Crisis Text Line: Text ``START to 564017 Emergency: 911 Outpatient [facility] Behavioral Health Resources: [facility]: [facility] [address] [place], [place] [address] [facility] [address] [place] [address] Thursday thru Thursday - 8am - 5pm Call to schedule an assessment for mental health and substance abuse programs [facility] Address: [address] [place] [address] Thursday thru Thursday- 7am-2pm [facility] Address: [address] [place] [address] Thursday thru Thursday: 8:30AM-5PM Prescriptions: Famotidine/Ca Carb/Mag Hydrox [Pepcid Complete Tablet Chew] 1 each PO BID PRN #20 tab PRN Reason: Indigestion hydrOXYzine PAMOATE [Vistaril] 50 mg PO Q6HR PRN #20 capsule PRN Reason: Anxiety Referrals: JOSEPH CHONG MD [Primary Care Provider] - 3-5 Days [facility] [Outside] - 3-5 Days Time of Disposition: 23:44
[2022-05-25 23:51] VITALS: BP 115/69
--- NOTE | 2022-05-26 16:59 | Electrocardiograph Report ---
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
== END 2022-05-25 23:55 | disposition home or self-care (01) ==
LOC: ED 16:23
DX: F41.9 Anxiety disorder, unspecified (principal); R20.2 Paresthesia of skin; K21.9 Gastro-esophageal reflux disease without esophagitis
CPT/HCPCS: 36415; 80053; 80320; 82550; 82553; 83735; 84439; 84443; 84484; 84702; 85025; 85610; 85670; 85730; 93005; 99283; G0480